=== PATIENT | male | born 1960 | race Caucasian/White ===

== ENCOUNTER 2017-05-19 15:37 | Inpatient (IN) | payer OTHER ==
[~2017-05-19] VITALS: Ht 177.8 cm; Wt 104.0 kg
[~2017-05-19 15:37] MED LIST: CALCIUM CHLORIDE 10% SOLN 1 GRAM/10 ML SYR IV ONE; PHENYLEPH/NS 1000 MCG/10 ML SYR IV ONE; PHENYLEPHRINE HCL 10 MG/ML VIAL IV ONE; PROPOFOL 200 MG/20 ML AMP IV ONE; ROCURONIUM INJ 50 MG/5 ML SYRINGE IV PUSH ONE; VECURONIUM BROMIDE 20 MG VIAL IV ONE
[2017-05-19] MEDS ORDERED: IOHEXOL 350 MG/ML 10 ML VIAL (for RAD DIAG) IVCONTRAST ONE (15:38)
[2017-05-19] MEDS ORDERED: DIPHTH/TETANUS/ACEL PERTUSSIS (BOOSTER) 0.5 ML VIAL/PFS IM ONE (15:42)
[2017-05-19] MEDS ORDERED: ONDANSETRON HCL 4 MG/2 ML VIAL ONE (15:42)
[2017-05-19] MEDS ORDERED: SUCCINYLCHOLINE CHLORIDE 200 MG/10 ML VIAL ONE ×2 (15:45→15:59)
[2017-05-19] MEDS ORDERED: ETOMIDATE 40 MG/20 ML VIAL ONE (15:45)
[2017-05-19] MEDS ORDERED: PROPOFOL 1000 MG/100 ML INJ 100 ML ONE (15:49)
[2017-05-19] MEDS ORDERED: MIDAZOLAM HCL 5 MG/ML VIAL (1 ML) ONE (15:49)
[2017-05-19] MEDS ORDERED: PHENYLEPHRINE HCL 10 MG/ML VIAL ONE (16:12)
[2017-05-19 16:30] LABS: AUTOMATED NEUTROPHIL # 8.2 TH/MM3 (1.8-7.7); BASOPHIL # 0.1 TH/MM3 (0-0.2); BASOPHIL % 0.5 % (0.0-2.0); EOSINOPHIL % 0.3 % (0.0-4.0); HEMATOCRIT 40.1 % (39.0-51.0); LYMPH % 28.1 % (9.0-44.0); LYMPHOCYTE # 3.4 TH/MM3 (1.0-4.8); MEAN CELL VOLUME 91.4 FL (80.0-100.0); MEAN CORPUSCULAR HEMOGLOBIN 31.9 PG (27.0-34.0); MEAN CORPUSCULAR HGB CONC 34.9 % (32.0-36.0); MEAN PLATELET VOLUME 7.6 FL (7.0-11.0); MONO % 2.9 % (0.0-8.0); MONOCYTE # 0.3 TH/MM3 (0-0.9); NEUT % 68.2 % (16.0-70.0); PLATELET COUNT 291 TH/MM3 (150-450); RED BLOOD COUNT 4.38 MIL/MM3 (4.50-5.90); RED CELL DISTRIBUTION WIDTH 12.9 % (11.6-17.2)
[2017-05-19 16:47] LABS: INTERNATIONAL NORMALIZED RATIO 1.2 RATIO; PROTHROMBIN TIME - PATIENT 11.9 SEC (9.8-11.6)
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
[2017-05-19] MEDS ORDERED: LACTULOSE SYRUP 20 GM/30 ML CUP PO PRN ×2 (17:00→18:00)
[2017-05-19] MEDS ORDERED: PROPOFOL 1000 MG/100 ML INJ 100 ML IV PRN ×2 (17:00→18:00)
[2017-05-19] MEDS ORDERED: fentaNYL DRIP 250 ML IV PRN ×2 (17:00→18:00)
[2017-05-19] MEDS ORDERED: CHLORHEXIDINE GLUCONATE 2 % 1 PACK (2 CLOTHS) TOP PRN ×2 (17:00→18:00)
[2017-05-19] MEDS ORDERED: SENNOSIDES 8.6 MG TAB PO PRN ×2 (17:00→18:00)
[2017-05-19] MEDS ORDERED: MAGNESIUM HYDROXIDE SUSP 30 ML CUP PO PRN (17:00)
[2017-05-19] MEDS ORDERED: BISACODYL 10 MG SUPP RECTAL PRN ×2 (17:00→18:00)
[2017-05-19] MEDS ORDERED: MISCELLANEOUS NURSING INFORMATION XX SCH ×2 (17:00→18:00)
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
[2017-05-19] MEDS ORDERED: MIDAZOLAM HCL 2 MG/2 ML VIAL ONE (17:04)
[2017-05-19] MEDS ORDERED: fentaNYL CITRATE 250 MCG/5 ML AMP ONE (17:04)
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
[2017-05-19 17:19] VITALS: O2SAT 97
[2017-05-19 17:21] VITALS: O2SAT 91
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
--- NOTE | 2017-05-19 17:49 | RADRPT ---
EXAM DATE/TIME: 05/19/2017 17:29 [facility] COMPARISON: CHEST SINGLE AP, May 19, 2017, 15:38. INDICATIONS : Evaluate for pneumothorax. MEDICAL HISTORY : None. SURGICAL HISTORY : None. ENCOUNTER: Subsequent ACUITY: 1 day PAIN SCORE: Non-responsive. LOCATION: chest FINDINGS: There is no pneumothorax. Multiple left rib fractures are noted the small amount of pleural fluid. Right lung clear. The support apparatus in good position. CONCLUSION: Negative for pneumothorax. Multiple left rib fractures. David Ho MD FACR on May 19, 2017 at 17:47 Board Certified Radiologist. This report was verified electronically.
[2017-05-19] MEDS: HEPARIN SODIUM - IV 10,000 UNITS/10 ML VIAL ONE ×2 (17:52→18:46)
[2017-05-19] MEDS ORDERED: ceFAZolin 2 GM PREMIX 50 ML ONE (17:59)
[2017-05-19] MEDS ORDERED: MAGNESIUM OXIDE 400 MG TAB PO PRN (18:00)
[2017-05-19] MEDS ORDERED: ONDANSETRON HCL 4 MG/2 ML VIAL IV PUSH PRN (18:00)
[2017-05-19] MEDS ORDERED: POTASSIUM PHOSPHATE MONOBASIC 500 MG TAB PO PRN (18:00)
[2017-05-19] MEDS ORDERED: RESP: ALBUTEROL 2.5 MG/3 ML NEB (PRN) INH (18:00)
[2017-05-19] MEDS ORDERED: SODIUM PHOSPHATE INJ 30 MMOL in SODIUM CHLOR 0.9% 250 ML INJ 240 ML IV PRN (18:00)
[2017-05-19] MEDS ORDERED: POTASSIUM PHOSPHATE INJ 30 MMOL in SODIUM CHLOR 0.9% 250 ML INJ 250 ML IV PRN (18:00)
[2017-05-19] MEDS ORDERED: DEXTROSE 50% IN WATER 50 ML VIAL(D50) IV PUSH PRN (18:00)
[2017-05-19] MEDS ORDERED: POTASSIUM CHLORIDE 25 MEQ EFFERVESCENT TAB PO PRN (18:00)
[2017-05-19] MEDS ORDERED: GLUCAGON 1 MG/ML VIAL OTHER PRN (18:00)
[2017-05-19] MEDS ORDERED: SODIUM CHLORIDE 0.9% FLUSH 10 ML FLUSH IV FLUSH PRN (18:00)
[2017-05-19] MEDS ORDERED: MAGNESIUM SULFATE INJ 4 GM in SODIUM CHLORIDE 0.9% INJ 92 ML IV PRN (18:00)
[2017-05-19] MEDS ORDERED: POTASSIUM CHLOR 40 MEQ PREMIX 100 ML IV PRN (18:00)
[2017-05-19] MEDS ORDERED: MAGNESIUM SULFATE INJ 2 GM in SODIUM CHLORIDE 0.9% INJ 96 ML IV PRN (18:00)
[2017-05-19] MEDS ORDERED: POTASSIUM CHLOR 20 MEQ PREMIX 100 ML IV PRN ×2 (18:00)
[2017-05-19] MEDS ORDERED: POTASSIUM PHOSPHATE MONOBASIC 500 MG TAB PO/TUBE PRN (18:00)
[2017-05-19] MEDS: LACTATED RINGER'S 1000 ML INJ 1,000 ML IV SCH (18:00)
[2017-05-19] MEDS ORDERED: TERBUTALINE INJ 1 MG/ML AMP SQ PRN (18:30)
[2017-05-19] MEDS ORDERED: NOREPINEPHRINE INJ 4 MG in SODIUM CHLOR 0.9% 250 ML INJ 246 ML IV PRN ×2 (18:30→21:15)
--- NOTE | 2017-05-19 18:52 | PD.PROCEDR ---
Central Line Procedure REASON FOR PROCEDURE Central venous access PROCEDURE PERFORMED Central line placement: Attempted right subclavian Cordis catheter CONSENT Informed consent for procedure was not obtained due to hemodynamic instability on multiple vasopressors. The risks and benefits of the procedure were discussed to include but limited to bleeding, clot formation, infection, and even . ANESTHESIA Local injection of 1% Lidocaine DESCRIPTION OF THE PROCEDURE The patient was placed in supine, mild Trendelenburg position. The area was exposed and cleansed with ChloraPrep, times two. Large sterile drape was used to cover the patient, with the site exposed, under sterile conditions including cap, face mask, sterile gown, and sterile gloves. On single attempt, the introducer needle was inserted with negative pressure in syringe below the right clavicle in towards the sternal notch. On multiple pass-throughs, unable to access right subclavian vein. Procedure was stopped. Follow-up chest x-ray revealed no pneumothorax.. COMPLICATIONS: No apparent complications ESTIMATED BLOOD LOSS: Less than 1 cc. Bo Rodriguez MD May 19, 2017 18:52
[2017-05-19] MEDS ORDERED: GELATIN 12 MM/7 MM FOAM I-ARTERIAL ONE (19:00)
[2017-05-19] MEDS ORDERED: IODIXANOL 320 MG/ML 50 ML VIAL (for RAD SPEC) I-ARTERIAL ONE (19:00)
--- NOTE | 2017-05-19 19:53 | PD.RAD ---
Post Procedure Progress Note Pre Procedure Diagnosis: (1) Hemorrhage of pelvic artery (2) Traumatic hemorrhagic shock Post Procedure Diagnosis: (1) Hemorrhage of pelvic artery (2) Traumatic hemorrhagic shock Procedure Date: May 19, 2017 Supervising Radiologist: Hussain Whitaker Proceduralist/Assist: Anjelica Tolentino, RT(R), Cris Cyr RT(R)() Anesthesia: General Plan of Activity Patient to Unit: Critical Care Patient Condition: Critical See PACS Report for procedural detail/treatment Vascular-Arterial Procedure Procedure 1 Procedure Site: Abdominal (Anterior division of pelvic arteries bilaterally) Procedure(s): Embolization (Anterior division of hypogastrics bilaterally) Access Access Site(s): Right Femoral Artery Closure Site(s): Right vascular closure device (PerClose) Findings: No active hemorrhage identified but patient undergoing massive transfusion protocol. Empiric embolization of anterior divisions of both hypogastrics, GelFoam bilaterally and coils on left. Hussain Whitaker MD May 19, 2017 19:52
[2017-05-19 20:00] VITALS: BP 169/97; PULSE 146; RESP 18; TEMP 95.4; O2SAT 89
[2017-05-19] MEDS ORDERED: CALCIUM CHLORIDE INJ 1 GM in SODIUM CHLORIDE 0.9% INJ 100 ML IV ONE (20:00)
[2017-05-19] MEDS: CHLORHEXIDINE 0.12% (ORAL KIT) 15 ML CUP MT SCH (20:00)
[2017-05-19] MEDS: ARTIFICIAL TEARS OPTH SOLN 15 ML BTL EACH EYE SCH (20:00)
[2017-05-19] MEDS: RESP: ALBUTEROL 2.5 MG/IPRATROPIUM 0.5 MG NEB (SCH) INH (20:00)
[2017-05-19] MEDS: PANTOPRAZOLE SODIUM 40 MG VIAL IV PUSH SCH (20:00)
[2017-05-19] MEDS: PROPOFOL 1000 MG/100 ML INJ 100 ML IV PRN (21:00)
[2017-05-19] MEDS ORDERED: FAMOTIDINE 20 MG TAB PO SCH (21:00)
[2017-05-19] MEDS ORDERED: FAMOTIDINE 20 MG/2 ML VIAL IV PUSH SCH (21:00)
[2017-05-19] MEDS: SODIUM CHLORIDE 0.9% FLUSH 10 ML FLUSH IV FLUSH SCH (21:00)
[2017-05-19] MEDS: DOCUSATE SODIUM 50 MG/SENNA 8.6 MG TAB PO SCH (21:00)
[2017-05-19] MEDS ORDERED: DOCUSATE SODIUM 50 MG/SENNA 8.6 MG TAB PO SCH (21:00)
[2017-05-19 21:06] LABS: HEMATOCRIT 36.8 % (39.0-51.0); HEMOGLOBIN 12.8 GM/DL (13.0-17.0); MEAN CELL VOLUME 85.6 FL (80.0-100.0); MEAN CORPUSCULAR HEMOGLOBIN 29.8 PG (27.0-34.0); MEAN CORPUSCULAR HGB CONC 34.8 % (32.0-36.0); PLATELET COUNT 95 TH/MM3 (150-450); RED CELL DISTRIBUTION WIDTH 15.9 % (11.6-17.2)
--- NOTE | 2017-05-19 21:09 | RADRPT ---
EXAM DATE/TIME: 05/19/2017 20:37 [facility] COMPARISON: CHEST SINGLE AP, May 19, 2017, 17:29. INDICATIONS : Trauma. Cyanosis. MEDICAL HISTORY : None. SURGICAL HISTORY : None. ENCOUNTER: Initial ACUITY: 1 day PAIN SCORE: Non-responsive. LOCATION: Bilateral chest FINDINGS: A single view of the chest demonstrates endotracheal tube in good position. NG enters stomach. Increa sing perihilar and basilar airspace disease since earlier exam. Multiple left rib fractures with extr apleural hematoma. CONCLUSION: 1. Increasing bilateral airspace disease since earlier exam. Differential diagnosis includes contusio n and edema. Multiple left rib fractures with extrapleural hematoma. Endotracheal tube and nasogastri c tube in good position. Bulmaro Fong MD on May 19, 2017 at 21:05 Board Certified Radiologist. This report was verified electronically.
[2017-05-19 21:14] VITALS: O2SAT 92
[2017-05-19 21:15] LABS: INTERNATIONAL NORMALIZED RATIO 1.4 RATIO; PROTHROMBIN TIME - PATIENT 14.3 SEC (9.8-11.6)
[2017-05-19 21:29] LABS: CALCIUM 8.8 MG/DL (8.5-10.1); CREATININE 1.13 MG/DL (0.60-1.30); DIRECT BILIRUBIN ADULT 0.5 MG/DL (0.0-0.2); MAGNESIUM 1.8 MG/DL (1.5-2.5)
[2017-05-19 21:36] LABS: INDIRECT BILIRUBIN 1.3 MG/DL (0.0-0.8); TOTAL BILIRUBIN ADULT 1.8 MG/DL (0.2-1.0)
[2017-05-19] MEDS: fentaNYL DRIP 250 ML IV PRN (21:39)
--- NOTE | 2017-05-19 22:08 | PD.OP ---
Operative Report hemorrhagic shock,pelvic fracture Postoperative Diagnosis: hemorrhagic shock,pelvic fracture Procedure: Preperitoneal packing Anesthesia: Surgeon: Marisa Valadez Cable Braider(s): OR -FA Operation and Findings: 57 y.o patient active bleeding pelvis,HD unstable in ICU,will proceed with pelvic packing to stabilize-and proceed to IR. Technique: Patient brought to the OR in intubated condition-with ongoing MTP.After administration of GA -lower abdominal midline incision was performed.Midline fascia opened preperitoneal space developed bluntly-a total of 5 packs were inserted-right,left and midline.Skin closure with yajaira.Tolerated procedure well-resuscitated by anesthesia. Marisa Valadez MD May 19, 2017 22:08
[2017-05-19] MEDS: POTASSIUM CHLOR 40 MEQ PREMIX 100 ML IV PRN (22:13)
[2017-05-19 23:00] VITALS: PULSE 120
[2017-05-20] VITALS (14 sets, daily range): BP systolic 96–163; BP diastolic 64–103; PULSE 95–117; RESP 16–22; TEMP 97.2–101.8; O2SAT 97–100
[2017-05-20] MEDS: POTASSIUM CHLOR 40 MEQ PREMIX 100 ML IV PRN (00:35)
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
[2017-05-20] MEDS ORDERED: ACETAMINOPHEN 1000 MG/100 ML 65 ML IV ONE (03:45)
[2017-05-20] MEDS: CHLORHEXIDINE GLUCONATE 2 % 1 PACK (2 CLOTHS) TOP SCH (03:56)
[2017-05-20] MEDS: LACTATED RINGER'S 1000 ML INJ 1,000 ML IV SCH ×2 (03:56→07:01)
[2017-05-20] MEDS ORDERED: CHLORHEXIDINE GLUCONATE 2 % 1 PACK (2 CLOTHS) TOP SCH (04:00)
[2017-05-20 04:15] LABS: AUTOMATED NEUTROPHIL # 6.9 TH/MM3 (1.8-7.7); BASOPHIL % 0.1 % (0.0-2.0); EOSINOPHIL % 0.2 % (0.0-4.0); HEMATOCRIT 38.9 % (39.0-51.0); HEMOGLOBIN 13.7 GM/DL (13.0-17.0); LYMPH % 5.5 % (9.0-44.0); LYMPHOCYTE # 0.4 TH/MM3 (1.0-4.8); MEAN CELL VOLUME 84.3 FL (80.0-100.0); MEAN CORPUSCULAR HEMOGLOBIN 29.8 PG (27.0-34.0); MEAN CORPUSCULAR HGB CONC 35.3 % (32.0-36.0); MONO % 3.5 % (0.0-8.0); MONOCYTE # 0.3 TH/MM3 (0-0.9); NEUT % 90.7 % (16.0-70.0); PLATELET COUNT 120 TH/MM3 (150-450); RED BLOOD COUNT 4.62 MIL/MM3 (4.50-5.90); WHITE BLOOD COUNT 7.6 TH/MM3 (4.0-11.0)
[2017-05-20 04:28] LABS: INTERNATIONAL NORMALIZED RATIO 1.1 RATIO; PROTHROMBIN TIME - PATIENT 10.8 SEC (9.8-11.6)
[2017-05-20 04:40] LABS: CALCIUM 8.5 MG/DL (8.5-10.1); CREATININE 1.6 MG/DL (0.60-1.30); MAGNESIUM 1.8 MG/DL (1.5-2.5)
[2017-05-20] MEDS: RESP: ALBUTEROL 2.5 MG/IPRATROPIUM 0.5 MG NEB (SCH) INH ×7 (05:15→23:27)
[2017-05-20 05:24] LABS: PHOSPHORUS 3.1 MG/DL (2.5-4.9)
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
[2017-05-20] MEDS: INSULIN ASPART SUPPLEMENTAL SCALE SQ SCH ×4 (06:00→17:50)
[2017-05-20] MEDS ORDERED: LACTATED RINGER'S 1000 ML INJ 1,000 ML IV ONE ×2 (06:15→06:30)
[2017-05-20] MEDS: CHLORHEXIDINE 0.12% (ORAL KIT) 15 ML CUP MT SCH ×2 (08:00→20:00)
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
[2017-05-20] MEDS: SODIUM CHLORIDE 0.9% FLUSH 10 ML FLUSH IV FLUSH SCH ×2 (09:00→20:48)
[2017-05-20] MEDS: LACTULOSE SYRUP 20 GM/30 ML CUP PO SCH (09:00)
[2017-05-20] MEDS: DOCUSATE SODIUM 50 MG/SENNA 8.6 MG TAB PO SCH ×2 (09:00→20:48)
[2017-05-20] MEDS: ARTIFICIAL TEARS OPTH SOLN 15 ML BTL EACH EYE SCH ×3 (09:00→17:10)
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
[2017-05-20] MEDS: PROPOFOL 1000 MG/100 ML INJ 100 ML IV PRN ×2 (17:00→23:11)
[2017-05-20] MEDS: fentaNYL DRIP 250 ML IV PRN (17:00)
[2017-05-20 17:51] LABS: HEMOGLOBIN 13.2 GM/DL (13.0-17.0); MEAN CELL VOLUME 85.4 FL (80.0-100.0); MEAN CORPUSCULAR HEMOGLOBIN 29.6 PG (27.0-34.0); MEAN CORPUSCULAR HGB CONC 34.7 % (32.0-36.0); MEAN PLATELET VOLUME 7.6 FL (7.0-11.0); PLATELET COUNT 99 TH/MM3 (150-450); RED BLOOD COUNT 4.45 MIL/MM3 (4.50-5.90); RED CELL DISTRIBUTION WIDTH 16.3 % (11.6-17.2); WHITE BLOOD COUNT 6.4 TH/MM3 (4.0-11.0)
[2017-05-20 18:33] LABS: BICARBONATE 29.2 MEQ/L (21.0-32.0); CALCIUM 7.8 MG/DL (8.5-10.1); CREATININE 1.57 MG/DL (0.60-1.30)
[2017-05-20] MEDS: PANTOPRAZOLE SODIUM 40 MG VIAL IV PUSH SCH (20:00)
[2017-05-21] VITALS (14 sets, daily range): BP systolic 105–124; BP diastolic 62–66; PULSE 99–117; RESP 16; TEMP 98.5–101.1; O2SAT 92–100
[2017-05-21] MEDS: RESP: ALBUTEROL 2.5 MG/IPRATROPIUM 0.5 MG NEB (SCH) INH ×5 (03:12→19:42)
[2017-05-21] MEDS: CHLORHEXIDINE GLUCONATE 2 % 1 PACK (2 CLOTHS) TOP SCH (04:00)
[2017-05-21 04:04] LABS: BASOPHIL % 0.3 % (0.0-2.0); EOSINOPHIL # 0.1 TH/MM3 (0-0.4); EOSINOPHIL % 1.8 % (0.0-4.0); HEMATOCRIT 36.6 % (39.0-51.0); HEMOGLOBIN 12.9 GM/DL (13.0-17.0); LYMPH % 9.6 % (9.0-44.0); LYMPHOCYTE # 0.7 TH/MM3 (1.0-4.8); MEAN CORPUSCULAR HEMOGLOBIN 29.9 PG (27.0-34.0); MEAN CORPUSCULAR HGB CONC 35.1 % (32.0-36.0); MEAN PLATELET VOLUME 7.6 FL (7.0-11.0); MONO % 5.2 % (0.0-8.0); MONOCYTE # 0.4 TH/MM3 (0-0.9); NEUT % 83.1 % (16.0-70.0); PLATELET COUNT 87 TH/MM3 (150-450); RED CELL DISTRIBUTION WIDTH 16.3 % (11.6-17.2); WHITE BLOOD COUNT 7.2 TH/MM3 (4.0-11.0)
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
[2017-05-21 04:30] LABS: ALBUMIN 2.7 GM/DL (3.4-5.0); BICARBONATE 29.6 MEQ/L (21.0-32.0); CALCIUM 7.4 MG/DL (8.5-10.1); CALCIUM-PROTEIN CORRECTED 8.3 MG/DL (8.5-10.1); CREATININE 1.43 MG/DL (0.60-1.30); MAGNESIUM 2.2 MG/DL (1.5-2.5); PHOSPHORUS 4.6 MG/DL (2.5-4.9); TOTAL BILIRUBIN ADULT 3.5 MG/DL (0.2-1.0); TOTAL PROTEIN 5.5 GM/DL (6.4-8.2)
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
[2017-05-21 04:52] LABS: INTERNATIONAL NORMALIZED RATIO 1.2 RATIO; PROTHROMBIN TIME - PATIENT 12.6 SEC (9.8-11.6)
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
[2017-05-21 05:03] LABS: BANDS 9 % (0-6); DOHLE BODIES PRESENT (NONE SEEN); LYMPHOCYTES 10 % (9-44); MONOCYTES 3 % (0-8); NEUTROPHIL # MANUAL DIFF 6.1 TH/MM3 (1.8-7.7); POLYS (SEG NEUTROPHILS) 76 % (16-70)
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
[2017-05-21 05:04] LABS: ACANTHOCYTES OCC (NORMAL)
[2017-05-21] MEDS: INSULIN ASPART SUPPLEMENTAL SCALE SQ SCH ×4 (05:43→18:00)
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
[2017-05-21] MEDS: PROPOFOL 1000 MG/100 ML INJ 100 ML IV PRN ×2 (06:16→16:15)
[2017-05-21] MEDS: LACTULOSE SYRUP 20 GM/30 ML CUP PO SCH (09:27)
[2017-05-21] MEDS: DOCUSATE SODIUM 50 MG/SENNA 8.6 MG TAB PO SCH ×2 (09:27→19:52)
[2017-05-21] MEDS: SODIUM CHLORIDE 0.9% FLUSH 10 ML FLUSH IV FLUSH SCH ×2 (09:28→19:52)
[2017-05-21] MEDS: fentaNYL DRIP 250 ML IV PRN ×2 (09:28→19:55)
[2017-05-21] MEDS: CHLORHEXIDINE 0.12% (ORAL KIT) 15 ML CUP MT SCH ×2 (09:28→19:54)
[2017-05-21] MEDS: ARTIFICIAL TEARS OPTH SOLN 15 ML BTL EACH EYE SCH ×3 (09:28→18:03)
[2017-05-21] MEDS: LACTATED RINGER'S 1000 ML INJ 1,000 ML IV SCH ×2 (09:28)
[2017-05-21] MEDS ORDERED: GENTAMICIN SULFATE 80 MG/2 ML VIAL ONE (10:19)
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
[2017-05-21] MEDS ORDERED: POTASSIUM CHLORIDE INJ 30 MEQ in SODIUM CHLORIDE 0.9% INJ 100 ML IV-CENTRAL ONE (10:30)
[2017-05-21] MEDS ORDERED: CALCIUM GLUCONATE INJ 1 GM in SODIUM CHLORIDE 0.9% INJ 100 ML IV ONE (10:30)
[2017-05-21] MEDS ORDERED: VANCOMYCIN HCL 1000 MG VIAL ONE (10:55)
[2017-05-21] MEDS ORDERED: ceFAZolin 2 GM PREMIX 50 ML ONE (10:55)
[2017-05-21] MEDS ORDERED: VANCOMYCIN HCL 1000 MG VIAL IV ONE (11:19)
[2017-05-21] MEDS ORDERED: TRANEXAMIC ACID INJ 1,000 MG in SODIUM CHLORIDE 0.9% INJ 100 ML IV ONE ×2 (11:34→13:10)
[2017-05-21] MEDS ORDERED: ceFAZolin 2 GM PREMIX 50 ML IV ONE (11:35)
[2017-05-21] MEDS ORDERED: PROPOFOL 500 MG/50 ML INJ 50 ML ONE ×2 (11:38→11:40)
[2017-05-21] MEDS ORDERED: PHENYLEPH/NS 1000 MCG/10 ML SYR IV ONE (12:00)
[2017-05-21] MEDS ORDERED: SODIUM CHLOR 0.9% 250 ML INJ 750 ML IV ONE (12:00)
[2017-05-21] MEDS ORDERED: SODIUM CHLORIDE 0.9% 20 ML VIAL IV ONE (12:00)
[2017-05-21] MEDS ORDERED: PHENYLEPHRINE HCL 10 MG/ML VIAL IV ONE (12:00)
[2017-05-21] MEDS ORDERED: STERILE WATER FOR INJECTION 20 ML VIAL IV ONE (12:00)
[2017-05-21] MEDS ORDERED: VECURONIUM BROMIDE 20 MG VIAL IV ONE (12:00)
[2017-05-21] MEDS ORDERED: LACTATED RINGER'S 1000 ML INJ 2,000 ML IV ONE (12:00)
[2017-05-21] MEDS ORDERED: SODIUM BICARBONATE 8.4% INJ 50 MEQ/50 ML SYR IV ONE (12:00)
[2017-05-21] MEDS ORDERED: CALCIUM CHLORIDE 10% SOLN 1 GRAM/10 ML SYR IV ONE (12:00)
[2017-05-21] MEDS ORDERED: PHENYLEPHRINE HCL 10 MG/ML VIAL ONE (12:10)
[2017-05-21] MEDS ORDERED: VECURONIUM BROMIDE 20 MG VIAL ONE (12:10)
[2017-05-21] MEDS ORDERED: TRANEXAMIC ACID INJ 1,000 MG/10 ML AMP ONE (12:42)
[2017-05-21] MEDS ORDERED: TRANEXAMIC ACID 650 MG TAB ONE (12:44)
--- NOTE | 2017-05-21 13:10 | RADRPT ---
EXAM DATE/TIME: 05/21/2017 12:07 [facility] COMPARISON: No previous studies available for comparison. INDICATIONS : Post hardware placement left tibia MEDICAL HISTORY : Non-responsive. SURGICAL HISTORY : Non-responsive. ENCOUNTER: Subsequent ACUITY: 1 day PAIN SCORE: Non-responsive. LOCATION: Left Tibia FINDINGS: Two view examination of the left tibia demonstrate status post ORIF of a tibial plateau fracture with now excellent alignment. Some step-off anteriorly of the lateral tibial plateau Bony mineralization is normal. The soft tissue structures are intact. CONCLUSION: Status post tibial fracture fixation without complication. Robert Doss MD on May 21, 2017 at 13:07 Board Certified Radiologist. This report was verified electronically.
[2017-05-21] MEDS ORDERED: HYDR-3288 PO (13:12)
[2017-05-21] MEDS ORDERED: ENOX40P SQ (13:13)
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
--- NOTE | 2017-05-21 14:12 | RADRPT ---
EXAM DATE/TIME: 05/21/2017 12:07 [facility] COMPARISON: No previous studies available for comparison. INDICATIONS : Retrograde femoral zeinab placement. MEDICAL HISTORY : None. SURGICAL HISTORY : None. ENCOUNTER: Initial ACUITY: 1 day PAIN SCORE: Non-responsive. LOCATION: Right femur. FINDINGS: Two view examination of the right femur demonstrates status post ORIF of comminuted femoral fracture. Bony mineralization is normal. The soft tissue structures are intact. CONCLUSION: Status post fracture fixation as above. Robert Doss MD on May 21, 2017 at 14:10 Board Certified Radiologist. This report was verified electronically.
--- NOTE | 2017-05-21 14:37 | RADRPT ---
EXAM DATE/TIME: 05/21/2017 14:05 [facility] COMPARISON: No previous studies available for comparison. INDICATIONS : OR Lap Count. MEDICAL HISTORY : None. SURGICAL HISTORY : Iliac embolization. ENCOUNTER: Initial ACUITY: 1 day PAIN SCORE: Non-responsive. LOCATION: Right pelvis FINDINGS: A single frontal view of the pelvis demonstrates a left superior and inferior pubic ramus fracture. T he iliac coil overlying the left superior pubic ramus The bony pelvic ring is intact. Bony mineraliz ation is normal. The soft tissues are intact. A De La Vega catheter in place CONCLUSION: No foreign body identified other than embolization coil and De La Vega catheter. Robert Doss MD on May 21, 2017 at 14:34 Board Certified Radiologist. This report was verified electronically.
[2017-05-21] MEDS ORDERED: Post-op Orders (for Pharmacy) XX ONE (15:00)
[2017-05-21] MEDS ORDERED: MIDAZOLAM HCL 2 MG/2 ML VIAL ONE (15:04)
[2017-05-21] MEDS ORDERED: ACETAMINOPHEN 650 MG/20.3 ML UDC NG PRN (19:00)
[2017-05-21] MEDS ORDERED: ACETAMINOPHEN 325 MG TAB PO PRN (19:00)
[2017-05-21] MEDS: PANTOPRAZOLE SODIUM 40 MG VIAL IV PUSH SCH (19:52)
[2017-05-22] VITALS (20 sets, daily range): BP systolic 101–165; BP diastolic 61–92; PULSE 100–117; RESP 14–22; TEMP 99.7–100.4; O2SAT 94–100
[2017-05-22] MEDS: RESP: ALBUTEROL 2.5 MG/IPRATROPIUM 0.5 MG NEB (SCH) INH ×6 (00:06→19:43)
[2017-05-22] MEDS: PROPOFOL 1000 MG/100 ML INJ 100 ML IV PRN ×4 (00:17→23:46)
[2017-05-22 03:47] LABS: AUTOMATED NEUTROPHIL # 5.6 TH/MM3 (1.8-7.7); BASOPHIL % 0.5 % (0.0-2.0); EOSINOPHIL # 0.2 TH/MM3 (0-0.4); EOSINOPHIL % 2.5 % (0.0-4.0); HEMATOCRIT 32.3 % (39.0-51.0); HEMOGLOBIN 10.9 GM/DL (13.0-17.0); LYMPH % 11.4 % (9.0-44.0); LYMPHOCYTE # 0.8 TH/MM3 (1.0-4.8); MEAN CELL VOLUME 86.7 FL (80.0-100.0); MEAN CORPUSCULAR HEMOGLOBIN 29.3 PG (27.0-34.0); MEAN CORPUSCULAR HGB CONC 33.8 % (32.0-36.0); MEAN PLATELET VOLUME 7.9 FL (7.0-11.0); MONO % 3.4 % (0.0-8.0); MONOCYTE # 0.2 TH/MM3 (0-0.9); NEUT % 82.2 % (16.0-70.0); PLATELET COUNT 82 TH/MM3 (150-450); RED BLOOD COUNT 3.72 MIL/MM3 (4.50-5.90); WHITE BLOOD COUNT 6.8 TH/MM3 (4.0-11.0)
[2017-05-22] MEDS: CHLORHEXIDINE GLUCONATE 2 % 1 PACK (2 CLOTHS) TOP SCH (04:00)
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
[2017-05-22 04:11] LABS: ALBUMIN 2.3 GM/DL (3.4-5.0); AST (GOT) 45 U/L (15-37); BICARBONATE 27.5 MEQ/L (21.0-32.0); BLOOD UREA NITROGEN 22 MG/DL (7-18); CALCIUM 7.6 MG/DL (8.5-10.1); CHLORIDE 116 MEQ/L (98-107); CREATININE 1.39 MG/DL (0.60-1.30); DIRECT BILIRUBIN ADULT 0.6 MG/DL (0.0-0.2); GLOMERULAR FILTRATION RATE 44 ML/MIN (>89); GLUCOSE,RANDOM 124 MG/DL (74-106); MAGNESIUM 2.2 MG/DL (1.5-2.5); SODIUM (NA) 151 MEQ/L (136-145)
[2017-05-22 04:16] LABS: ALKALINE PHOSPHATASE 61 U/L (45-117); ALT (GPT) 26 U/L (12-78); PHOSPHORUS 2.6 MG/DL (2.5-4.9); TOTAL BILIRUBIN ADULT 2.6 MG/DL (0.2-1.0); TOTAL PROTEIN 5.2 GM/DL (6.4-8.2)
[2017-05-22 04:27] LABS: BANDS 11 % (0-6); LYMPHOCYTES 11 % (9-44); METAMYELOCYTES 1 % (0-1); MONOCYTES 5 % (0-8); NEUTROPHIL # MANUAL DIFF 5.4 TH/MM3 (1.8-7.7); POLYS (SEG NEUTROPHILS) 67 % (16-70)
[2017-05-22 04:29] LABS: DOHLE BODIES PRESENT (NONE SEEN); TOXIC VACUOLATION PRESENT (NONE SEEN)
--- NOTE | 2017-05-22 05:51 | RADRPT ---
EXAM DATE/TIME: 05/22/2017 04:02 [facility] COMPARISON: CHEST SINGLE AP, May 21, 2017, 2:39. INDICATIONS : Shortness of breath, respiratory disease. MEDICAL HISTORY : None. SURGICAL HISTORY : None. ENCOUNTER: Subsequent ACUITY: 2 days PAIN SCORE: 0/10 LOCATION: Bilateral chest FINDINGS: A single AP portable semierect view of the chest was obtained and again demonstrates the endotracheal tube in place with the tip approximately 2 cm above the erica. A nasogastric tube is seen coursing through the esophagus into the stomach. Hazy airspace disease remains in the perihilar regions of bot h lung bases with blunting of the costophrenic angles. The heart size remains mildly enlarged. There are multiple overlying electrocardiogram leads. CONCLUSION: No significant change in the bibasilar airspace disease and pleural effusions. José Miguel Rodriguez MD on May 22, 2017 at 5:49 Board Certified Radiologist. This report was verified electronically.
[2017-05-22] MEDS: INSULIN ASPART SUPPLEMENTAL SCALE SQ SCH ×5 (06:00→23:54)
--- NOTE | 2017-05-22 06:58 | PD.ORT.PN ---
Subjective Subjective Remarks Pedro is intubated and sedated. Status post ORIF left tibial plateau and IM nail right femoral shaft by Dr. Donovan on 05/21/17. I have been consult for definitive management of left proximal humerus fracture. Patient also has left foot first, second, and third metatarsal fractures. Objective Vitals Vital Signs Date Time Temp Pulse Resp B/P (MAP) Pulse Ox O2 Delivery O2 Flow Rate FiO2 05/22/17 06:00 105 05/22/17 04:00 99.7 105 16 116/65 (82) 97 05/22/17 04:00 105 05/22/17 04:00 40 05/22/17 03:13 97 40 05/22/17 02:00 108 05/22/17 00:06 96 40 05/22/17 00:00 100.2 108 16 101/61 (74) 96 05/22/17 00:00 40 05/22/17 00:00 108 05/21/17 22:00 112 05/21/17 20:00 101.1 112 16 111/62 (78) 96 05/21/17 20:00 40 05/21/17 20:00 112 05/21/17 19:36 92 40 05/21/17 19:00 Mechanical Ventilator 40 05/21/17 16:14 96 40 05/21/17 16:00 99.5 117 16 124/66 (85) 94 05/21/17 16:00 40 05/21/17 08:23 96 40 05/21/17 08:00 99.5 106 16 105/64 (78) 100 05/21/17 08:00 40 05/21/17 07:00 Mechanical Ventilator 50 I/O 05/21/17 05/21/17 05/21/17 05/22/17 05/22/17 05/22/17 07:00 15:00 23:00 07:00 15:00 23:00 Intake Total 999 ml 2500 ml 995 ml 100 ml Output Total 640 ml 1110 ml 1300 ml 500 ml Balance 359 ml 1390 ml -305 ml -400 ml IV Total 999 ml 995 ml 100 ml Other 2500 ml Output Urine Total 640 ml 700 ml 950 ml 500 ml Gastric Drainage Total 350 ml Estimated Blood Loss 410 ml # Bowel Movements 0 Result Diagram: 05/22/17 0330 05/22/17 0330 Imaging Last 24 hours Impressions Chest X-Ray 05/22/17 0600 Signed Impressions: Service Date/Time: Monday, May 22, 2017 04:02 - CONCLUSION: No significant change in the bibasilar airspace disease and pleural effusions. José Miguel Rodriguez MD Objective Remarks Patient intubated and sedated. Central line placed and left subclavian region. Left shoulder--painful with range of motion, skin intact, mild swelling Right upper extremity--no obvious pain or deformity with shoulder, elbow, or wrist motion Left foot--mild swelling and bruising, mild discomfort, tender to palpation Along metatarsals. Assessment & Plan Assessment and Plan Right Femoral shaft fracture--status post intramedullary nail fixation by Dr. Donovan Left Tibial plateau fracture--status post ORIF by Dr. Donovan Left foot first, second, and third metatarsal fractures--plan nonsurgical treatment Left comminuted proximal humerus fracture--will likely need ORIF versus possible hemiarthroplasty, we'll continue to follow patient's progress. Central line would need to be removed away from the left subclavian region prior to potential surgery Mal Ley MD May 22, 2017 06:58
[2017-05-22] MEDS: SODIUM CHLORIDE 0.9% FLUSH 10 ML FLUSH IV FLUSH SCH ×2 (08:32→20:22)
[2017-05-22] MEDS: LACTULOSE SYRUP 20 GM/30 ML CUP PO SCH (08:32)
[2017-05-22] MEDS: DOCUSATE SODIUM 50 MG/SENNA 8.6 MG TAB PO SCH ×2 (08:32→20:22)
[2017-05-22] MEDS: CHLORHEXIDINE 0.12% (ORAL KIT) 15 ML CUP MT SCH ×2 (08:33→20:00)
[2017-05-22] MEDS: ARTIFICIAL TEARS OPTH SOLN 15 ML BTL EACH EYE SCH ×3 (08:36→18:00)
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
[2017-05-22] MEDS: LACTATED RINGER'S 1000 ML INJ 1,000 ML IV SCH (10:54)
[2017-05-22] MEDS: FREE WATER G-TUBE SCH ×3 (11:13→23:44)
[2017-05-22] MEDS: fentaNYL DRIP 250 ML IV PRN (12:13)
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
[2017-05-22] MEDS ORDERED: ENOXAPARIN SODIUM 40 MG/0.4 ML SYRINGE SQ SCH (14:00)
--- NOTE | 2017-05-22 15:04 | PD.ORT.PN ---
Subjective Post Op Day #: 1 Subjective Remarks intubated Objective Vitals Vital Signs Date Time Temp Pulse Resp B/P (MAP) Pulse Ox O2 Delivery O2 Flow Rate FiO2 05/22/17 14:00 112 05/22/17 12:19 98 35 05/22/17 12:15 35 05/22/17 12:00 100.0 107 22 165/92 (116) 99 05/22/17 12:00 40 05/22/17 12:00 102 05/22/17 11:39 98 40 05/22/17 10:00 102 05/22/17 08:15 99 40 05/22/17 08:00 40 05/22/17 08:00 99.9 100 16 114/76 (89) 100 05/22/17 08:00 101 05/22/17 07:00 99 Mechanical Ventilator 40 05/22/17 06:00 105 05/22/17 04:00 99.7 105 16 116/65 (82) 97 05/22/17 04:00 105 05/22/17 04:00 40 05/22/17 03:13 97 40 05/22/17 02:00 108 05/22/17 00:06 96 40 05/22/17 00:00 100.2 108 16 101/61 (74) 96 05/22/17 00:00 40 05/22/17 00:00 108 05/21/17 22:00 112 05/21/17 20:00 101.1 112 16 111/62 (78) 96 05/21/17 20:00 40 05/21/17 20:00 112 05/21/17 19:36 92 40 05/21/17 19:00 Mechanical Ventilator 40 05/21/17 16:14 96 40 05/21/17 16:00 99.5 117 16 124/66 (85) 94 18 16:00 40 I/O 05/21/1705/21/18 18 05/22/17 05/22/17 05/22/17 06:59 14:59 22:59 06:59 14:59 22:59 Intake Total 999 ml 2500 ml 995 ml 100 ml Output Total 640 ml 1110 ml 1300 ml 500 ml Balance 359 ml 1390 ml -305 ml -400 ml IV Total 999 ml 995 ml 100 ml Other 2500 ml Output Urine Total 640 ml 700 ml 950 ml 500 ml Gastric Drainage Total 350 ml Estimated Blood Loss 410 ml # Bowel Movements 0 Result Diagram: 05/22/17 0330 05/22/17 0330 Imaging Last 24 hours Impressions Chest X-Ray 05/22/17 0600 Signed Impressions: Service Date/Time: Monday, May 22, 2017 04:02 - CONCLUSION: No significant change in the bibasilar airspace disease and pleural effusions. José Miguel Rodriguez MD Objective Remarks Patient intubated dressing BLE intact swelling, but thighs soft cap refill distally Assessment & Plan Ortho Post Op Day #: 1 Problem List: Assessment and Plan s/p - Right Femoral shaft fracture--status post intramedullary nail fixation by Dr. Donovan 05/21/17 -Left Tibial plateau fracture--status post ORIF by Dr. Donovan 05/21/17 -Left foot first, second, and third metatarsal fractures--plan nonsurgical treatment -Left comminuted proximal humerus fracture--will likely need ORIF versus possible hemiarthroplasty by Dr. Ley, continue to follow patient's progress. Central line would need to be removed away from the left subclavian region prior to potential surgery NWB BLE daily dressing changes CKS to KEVEN [facility] critical care management Jasper George May 22, 2017 15:04
[2017-05-22] MEDS: PANTOPRAZOLE SODIUM 40 MG VIAL IV PUSH SCH (20:21)
--- NOTE | 2017-05-22 23:14 | EKG ---
Date Performed: 05/21/2017 Time Performed: 03:20:12 PTAGE: 89 years EKG: Sinus tachycardia. Anteroseptal T wave changes are nonspecific Borderline ECG NO PREVIOUS TRACING DOCTOR: Florentino Wilburn Interpretating Date/Time 05/22/2017 23:02:32
[2017-05-23] VITALS (16 sets, daily range): BP systolic 106–144; BP diastolic 60–70; PULSE 92–104; RESP 16–19; TEMP 99.1–100.4; O2SAT 96–100
[2017-05-23] MEDS: RESP: ALBUTEROL 2.5 MG/IPRATROPIUM 0.5 MG NEB (SCH) INH ×6 (00:08→19:43)
[2017-05-23] MEDS: CHLORHEXIDINE GLUCONATE 2 % 1 PACK (2 CLOTHS) TOP SCH ×2 (04:00→19:47)
[2017-05-23] MEDS: fentaNYL DRIP 250 ML IV PRN ×2 (04:05→15:22)
[2017-05-23 05:27] LABS: ALBUMIN 2.2 GM/DL (3.4-5.0); ALT (GPT) 21 U/L (12-78); AST (GOT) 37 U/L (15-37); BICARBONATE 26.5 MEQ/L (21.0-32.0); BLOOD UREA NITROGEN 22 MG/DL (7-18); CALCIUM 7.6 MG/DL (8.5-10.1); CHLORIDE 117 MEQ/L (98-107); CREATININE 1.07 MG/DL (0.60-1.30); GLOMERULAR FILTRATION RATE 71 ML/MIN (>89); GLUCOSE,RANDOM 109 MG/DL (74-106); SODIUM (NA) 152 MEQ/L (136-145)
[2017-05-23 05:29] LABS: ALKALINE PHOSPHATASE 61 U/L (45-117); TOTAL BILIRUBIN ADULT 1.5 MG/DL (0.2-1.0); TOTAL PROTEIN 5.3 GM/DL (6.4-8.2)
[2017-05-23] MEDS: INSULIN ASPART SUPPLEMENTAL SCALE SQ SCH ×3 (05:31→18:00)
[2017-05-23] MEDS: FREE WATER G-TUBE SCH ×3 (05:31→18:00)
[2017-05-23] MEDS: LACTATED RINGER'S 1000 ML INJ 1,000 ML IV SCH (05:34)
--- NOTE | 2017-05-23 05:34 | RADRPT ---
EXAM DATE/TIME: 05/23/2017 04:14 [place] COMPARISON: CT THORAX W CONTRAST, May 19, 2017, 16:34. CHEST SINGLE AP, May 22, 2017, 4:02. INDICATIONS : Short of breath. MEDICAL HISTORY : None. SURGICAL HISTORY : None. ENCOUNTER: Subsequent ACUITY: 3 days PAIN SCORE: Non-responsive. LOCATION: Bilateral chest FINDINGS: A single AP portable semierect view the chest was obtained and again demonstrates the endotracheal tu be in place with the tip 2-3 cm above the erica. The previously noted nasogastric tube has been teodoro zulma. Bibasal opacity remains right greater than left with blunting of both costophrenic angles. The h eart size remains moderately enlarged. The bony thorax is intact with multiple overlying electrocardi ogram leads. Multiple left rib fractures are again noted with no pneumothorax. CONCLUSION: 1. Multiple left rib fractures with no visualized pneumothorax. 2. Interval removal of nasogastric tube. 3. Bibasal opacity and small effusions right greater than left. José Miguel Rodriguez MD on May 23, 2017 at 5:30 Board Certified Radiologist. This report was verified electronically.
[2017-05-23 06:01] LABS: AUTOMATED NEUTROPHIL # 4.8 TH/MM3 (1.8-7.7); BASOPHIL % 0.6 % (0.0-2.0); EOSINOPHIL # 0.2 TH/MM3 (0-0.4); EOSINOPHIL % 2.7 % (0.0-4.0); HEMATOCRIT 28.3 % (39.0-51.0); HEMOGLOBIN 9.8 GM/DL (13.0-17.0); LYMPH % 10.6 % (9.0-44.0); LYMPHOCYTE # 0.6 TH/MM3 (1.0-4.8); MEAN CELL VOLUME 88.1 FL (80.0-100.0); MEAN CORPUSCULAR HEMOGLOBIN 30.6 PG (27.0-34.0); MEAN CORPUSCULAR HGB CONC 34.7 % (32.0-36.0); MEAN PLATELET VOLUME 8.2 FL (7.0-11.0); MONO % 3.7 % (0.0-8.0); MONOCYTE # 0.2 TH/MM3 (0-0.9); NEUT % 82.4 % (16.0-70.0); PLATELET COUNT 93 TH/MM3 (150-450); RED BLOOD COUNT 3.21 MIL/MM3 (4.50-5.90); RED CELL DISTRIBUTION WIDTH 15.6 % (11.6-17.2); WHITE BLOOD COUNT 5.9 TH/MM3 (4.0-11.0)
[2017-05-23] MEDS: PROPOFOL 1000 MG/100 ML INJ 100 ML IV PRN ×3 (06:16→18:48)
[2017-05-23] MEDS: CHLORHEXIDINE 0.12% (ORAL KIT) 15 ML CUP MT SCH ×2 (08:00→20:00)
[2017-05-23] MEDS: DOCUSATE SODIUM 50 MG/SENNA 8.6 MG TAB PO SCH ×2 (09:00→20:31)
[2017-05-23] MEDS: LACTULOSE SYRUP 20 GM/30 ML CUP PO SCH (09:00)
[2017-05-23] MEDS: SODIUM CHLORIDE 0.9% FLUSH 10 ML FLUSH IV FLUSH SCH ×2 (09:00→20:31)
[2017-05-23] MEDS: ARTIFICIAL TEARS OPTH SOLN 15 ML BTL EACH EYE SCH ×3 (09:00→18:00)
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
[2017-05-23 09:30] LABS: BANDS 20 % (0-6); BASOPHILS 1 % (0-2); LYMPHOCYTES 9 % (9-44); METAMYELOCYTES 1 % (0-1); NEUTROPHIL # MANUAL DIFF 5.3 TH/MM3 (1.8-7.7); POLYS (SEG NEUTROPHILS) 68 % (16-70)
--- NOTE | 2017-05-23 09:49 | PD.ORT.PN ---
Subjective Subjective Remarks Intubated and stable Objective Vitals Vital Signs Date Time Temp Pulse Resp B/P (MAP) Pulse Ox O2 Delivery O2 Flow Rate FiO2 05/23/17 08:30 100 40 05/23/17 08:00 92 05/23/17 08:00 99.1 92 16 112/60 (77) 99 05/23/17 08:00 40 05/23/17 07:00 98 Mechanical Ventilator 40 05/23/17 06:00 94 05/23/17 04:00 99.3 99 16 106/66 (79) 96 05/23/17 04:00 100 05/23/17 04:00 40 05/23/17 03:10 97 40 05/23/17 02:00 100 05/23/17 00:05 97 40 05/23/17 00:00 100 05/23/17 00:00 100.4 100 16 108/61 (77) 97 05/23/17 00:00 40 05/22/17 22:00 106 05/22/17 21:36 96 40 05/22/17 20:00 30 05/22/17 20:00 99.8 114 14 131/72 (91) 94 05/22/17 20:00 114 18 19:37 94 30 05/22/17 19:00 99 Mechanical Ventilator 40 05/22/17 18:00 117 05/22/17 16:51 98 35 05/22/18 16:00 35 05/22/18 16:00 112 05/22/18 16:00 100.4 112 14 150/85 (106) 98 18 14:00 112 18 12:19 98 35 18 12:15 35 18 12:00 100.0 107 22 165/92 (116) 99 05/22/18 12:00 40 05/22/18 12:00 102 05/22/18 11:39 98 40 05/22/18 10:00 102 I/O 05/22/18 2//18 2/19/18 2/20/18 2/20/18 2/20/18 07:00 15:00 23:00 07:00 15:00 23:00 Intake Total 100 ml 550 ml 2142 ml Output Total 500 ml 700 ml 750 ml Balance -400 ml -150 ml 1392 ml IV Total 100 ml 50 ml 2074 ml Tube Feeding 100 ml 68 ml Other 400 ml Output Urine Total 500 ml 700 ml 750 ml # Bowel Movements 0 Result Diagram: 05/23/17 0455 05/23/17 0440 Imaging Last 24 hours Impressions Chest X-Ray 05/22/17 0600 Signed Impressions: Service Date/Time: Monday, May 22, 2017 04:02 - CONCLUSION: No significant change in the bibasilar airspace disease and pleural effusions. José Miguel Rodriguez MD Objective Remarks Patient intubated dressing BLE intact swelling, but thighs soft cap refill distally Left upper extremity: Skin intact over proximal humerus. Moderate bruising and swelling. Distally intact distal pulses and good capillary refills. Patient is sedated and was unable to assess motor and sensory. Assessment & Plan Assessment and Plan s/p - Right Femoral shaft fracture--status post intramedullary nail fixation by Dr. Donovan 05/21/17 -Left Tibial plateau fracture--status post ORIF by Dr. Donovan 05/21/17 -Left foot first, second, and third metatarsal, left lateral cuneiform fractures --plan nonsurgical treatment -Left comminuted proximal humerus fracture NWB BLE daily dressing changes CKS to LLE hold lovenox Nothing by mouth Surgery today for left proximal humerus fracture ORIF versus hemiarthroplasty critical care management José Miguel Rice Jr. May 23, 2017 09:49
[2017-05-23] MEDS ORDERED: ACETAMINOPHEN 1000 MG/100 ML 100 ML IV ONE (11:09)
[2017-05-23 11:32] LABS: CALCIUM 7.6 MG/DL (8.5-10.1); CALCIUM-PROTEIN CORRECTED 8.6 MG/DL (8.5-10.1); TOTAL PROTEIN 5.3 GM/DL (6.4-8.2)
[2017-05-23] MEDS ORDERED: VANCOMYCIN HCL 1000 MG VIAL ONE (11:48)
[2017-05-23] MEDS ORDERED: GENTAMICIN SULFATE 80 MG/2 ML VIAL ONE (11:48)
[2017-05-23] MEDS ORDERED: LIDOCAINE HCL 1% PF 5 ML SYRINGE OTHER ONE (12:00)
[2017-05-23] MEDS ORDERED: PROPOFOL 200 MG/20 ML AMP IV ONE (12:00)
[2017-05-23] MEDS ORDERED: SODIUM CHLOR 0.9% 250 ML INJ 750 ML IV ONE (12:00)
[2017-05-23] MEDS ORDERED: PHENYLEPH/NS 1000 MCG/10 ML SYR IV ONE (12:00)
[2017-05-23] MEDS ORDERED: PHENYLEPHRINE HCL 10 MG/ML VIAL IV ONE (12:00)
[2017-05-23] MEDS ORDERED: ROCURONIUM INJ 50 MG/5 ML SYRINGE IV PUSH ONE (12:00)
--- NOTE | 2017-05-23 14:07 | PD.OP ---
cc: Mal Jansen MD Operative Report Date of Surgery: May 23, 2017 Preoperative Diagnosis: Comminuted displaced left proximal humerus fracture Postoperative Diagnosis: Procedure: Open reduction internal fixation left proximal humerus Anesthesia: Gen. Surgeon: Mal Jansen Lens And Frames Prescription Clerk(s): SUHAIL Pineda PA-C The surgical procedure was assisted by my physician materials assistant. My P.A. presence was necessary throughout this case for the manipulation and positioning of the surgical extremity. My P.A. was assisting me throughout the duration of this procedure. The skill set of a physician materials assistant was medically necessary to complete this procedure. During the surgical case the medical surgical tech was working at the back table and the physician materials assistant was directly assisting me. Operation and Findings: Patient was seen and evaluated preoperatively. Patient had multiple injuries including tibial plateau fracture, metatarsal fractures, and femur fracture. Patient also had a displaced left proximal humerus fracture. Patient has been intubated and sedated in the intensive care unit. He has been unable to consent secondary to intubation and sedation. The risks and benefits of surgical and nonsurgical options were discussed in detail and informed consent was obtained for surgery from patient's mother. Patient was brought to the operating room and placed on or table. IV sedation and GETA were administered by anesthesiologist. Antibiotics were given prior to incision. Left arm and shoulder were prepped with alcohol followed by Hibiclens and draped usual sterile fashion. Timeout procedure was performed. Procedure began with a 5 inch incision over the anterior shoulder. Cephalic vein was identified. A deltopectoral approach was utilized. The fracture was now visualized. Soft tissue was retracted. A #5 FiberWire suture was placed into the rotator rotator cuff and greater tuberosity. A second #5 FiberWire sutures placed into the lesser tuberosity. Attention was now turned to reduction. Gentle traction was applied. The humeral head was elevated. The tuberosities were now reduced. The humeral head was manipulated to achieve appropriate reduction. K wires were used to hold provisional fixation. The humeral shaft was now reduced to the humeral head. Fracture was manipulated to achieve appropriate reduction. Multiplanar fluoroscopy confirmed well aligned fracture. Multiple K wires were used to hold provisional fixation. A Synthes proximal humerus plate was selected. Plate was provisionally held in place K wires. 3.5 cortical screws were used to compress plate to bone. Fluoroscopy confirmed appropriate plate placement and fracture reduction. Multiple locking screws were now placed in the humeral head. Screws were predrilled and premeasured for appropriate length. Care was taken not to penetrate the articular surface. Additional screws were placed in the humeral shaft. The FiberWire suture was passed through the holes of the plate and sutured to the plate for additional stability. Final fluoroscopy revealed well aligned fracture with well-placed hardware. Wound was thoroughly irrigated. Fascia was closed with #1 Vicryl, subcutaneous tissues closed with 3-0 Vicryl, and skin was closed with yajaira. Sterile dressings were applied. Patient was placed into a sling. Patient was awakened and transferred to recovery in stable condition. Needle and sponge counts were correct. Mal Jansen MD May 23, 2017 14:07
[2017-05-23] MEDS ORDERED: ACETAMINOPHEN/HYDROcodone 325 MG/10 MG TAB PO PRN (15:30)
[2017-05-23] MEDS ORDERED: MORPHINE SULFATE 4 MG/ML INJ IV PUSH PRN (15:30)
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
[2017-05-23] MEDS: ceFAZolin 2 GM PREMIX 50 ML IV SCH (16:55)
--- NOTE | 2017-05-23 17:59 | RADRPT ---
EXAM DATE/TIME: 05/23/2017 13:45 [facility] COMPARISON: No previous studies available for comparison. INDICATIONS : ORIF of the left proximal humerus. MEDICAL HISTORY : None. SURGICAL HISTORY : None. ENCOUNTER: Subsequent ACUITY: 4 - 6 days PAIN SCORE: Non-responsive. LOCATION: Left proximal humerus. FINDINGS: 6 images are recorded digitally in the operating room using C-arm during placement of a proximal ofelia ral plate with multiple screws. CONCLUSION: Intraoperative images. Joaquin Velez MD on May 23, 2017 at 17:56 Board Certified Radiologist. This report was verified electronically.
[2017-05-23] MEDS: MAGNESIUM HYDROXIDE SUSP 30 ML CUP PO PRN (20:30)
[2017-05-23] MEDS: ENOXAPARIN SODIUM 30 MG/0.3 ML SYRINGE SQ SCH (20:30)
[2017-05-23] MEDS: PANTOPRAZOLE SODIUM 40 MG VIAL IV PUSH SCH (20:31)
[2017-05-24] VITALS (19 sets, daily range): BP systolic 110–143; BP diastolic 62–94; PULSE 96–112; RESP 16–28; TEMP 99.7–101.1; O2SAT 90–99
[2017-05-24] MEDS: ceFAZolin 2 GM PREMIX 50 ML IV SCH ×3 (00:26→17:11)
[2017-05-24] MEDS: LACTATED RINGER'S 1000 ML INJ 1,000 ML IV SCH ×2 (01:08→20:41)
[2017-05-24] MEDS: PROPOFOL 1000 MG/100 ML INJ 100 ML IV PRN ×2 (01:08→06:57)
[2017-05-24] MEDS: fentaNYL DRIP 250 ML IV PRN ×2 (04:42→13:57)
[2017-05-24 04:49] LABS: AUTOMATED NEUTROPHIL # 4.7 TH/MM3 (1.8-7.7); BASOPHIL # 0.1 TH/MM3 (0-0.2); EOSINOPHIL # 0.1 TH/MM3 (0-0.4); EOSINOPHIL % 2.5 % (0.0-4.0); HEMATOCRIT 27.5 % (39.0-51.0); HEMOGLOBIN 9.3 GM/DL (13.0-17.0); LYMPH % 10.4 % (9.0-44.0); LYMPHOCYTE # 0.6 TH/MM3 (1.0-4.8); MEAN CELL VOLUME 88.7 FL (80.0-100.0); MEAN CORPUSCULAR HEMOGLOBIN 29.8 PG (27.0-34.0); MEAN CORPUSCULAR HGB CONC 33.6 % (32.0-36.0); MEAN PLATELET VOLUME 7.7 FL (7.0-11.0); MONOCYTE # 0.2 TH/MM3 (0-0.9); NEUT % 82.1 % (16.0-70.0); PLATELET COUNT 117 TH/MM3 (150-450); RED BLOOD COUNT 3.11 MIL/MM3 (4.50-5.90); RED CELL DISTRIBUTION WIDTH 15.6 % (11.6-17.2); WHITE BLOOD COUNT 5.7 TH/MM3 (4.0-11.0)
[2017-05-24 05:15] LABS: ALBUMIN 2.1 GM/DL (3.4-5.0); AST (GOT) 35 U/L (15-37); BICARBONATE 26.2 MEQ/L (21.0-32.0); BLOOD UREA NITROGEN 22 MG/DL (7-18); CALCIUM 7.6 MG/DL (8.5-10.1); CHLORIDE 118 MEQ/L (98-107); CREATININE 0.96 MG/DL (0.60-1.30); GLOMERULAR FILTRATION RATE 80 ML/MIN (>89); GLUCOSE,RANDOM 116 MG/DL (74-106); SODIUM (NA) 153 MEQ/L (136-145)
[2017-05-24 05:17] LABS: ALT (GPT) 14 U/L (12-78)
[2017-05-24 05:19] LABS: ALKALINE PHOSPHATASE 65 U/L (45-117); TOTAL PROTEIN 5.3 GM/DL (6.4-8.2)
[2017-05-24] MEDS: INSULIN ASPART SUPPLEMENTAL SCALE SQ SCH ×4 (05:52→18:00)
[2017-05-24] MEDS: FREE WATER G-TUBE SCH ×4 (05:53→17:11)
--- NOTE | 2017-05-24 07:03 | RADRPT ---
EXAM DATE/TIME: 05/24/2017 04:57 [facility] COMPARISON: CHEST SINGLE AP, May 23, 2017, 4:14. INDICATIONS : Shortness of breath. MEDICAL HISTORY : None. SURGICAL HISTORY : None. ENCOUNTER: Subsequent ACUITY: 4 - 6 days PAIN SCORE: Non-responsive. LOCATION: Bilateral chest FINDINGS: A single AP semierect view of the chest was obtained and demonstrates interval placement of a nasogas tric tube with the tip in the proximal stomach. The distal side-port is at the level of the distal es ophagus. Endotracheal tube remains in place with the tip 2 cm above the erica. Bilateral air space d isease is again noted which appears increased in the perihilar regions and upper lobes. Both costophr enic angles remain blunted. The heart size remains enlarged. CONCLUSION: 1. Interval increase in airspace disease. 2. Interval placement of nasogastric tube with the tip in the proximal stomach. The side-port is at t he level of the distal esophagus. This could be advanced at least 5 cm. José Miguel Rodriguez MD on May 24, 2017 at 7:00 Board Certified Radiologist. This report was verified electronically.
--- NOTE | 2017-05-24 07:06 | PD.ORT.PN ---
Subjective Subjective Remarks POD 1 s/p ORIF left proximal humerus fx s/p IMN right femur by Dr Donovan s/p ORIF left tibial plateau by Dr Donovan s/p left cuboid and fibula and MT fxs - nonop intubated/sedated Objective Vitals Vital Signs Date Time Temp Pulse Resp B/P (MAP) Pulse Ox O2 Delivery O2 Flow Rate FiO2 05/24/17 03:19 96 40 05/24/17 02:00 100 05/24/17 00:23 94 40 05/24/17 00:00 102 05/24/17 00:00 40 05/24/17 00:00 100.0 102 17 110/62 (78) 95 05/23/17 22:00 102 05/23/17 20:00 100.0 104 19 144/70 (94) 97 05/23/17 20:00 40 05/23/17 20:00 104 05/23/17 19:39 98 40 05/23/17 19:00 100 Mechanical Ventilator 40 05/23/17 18:00 104 05/23/17 16:00 100.2 104 16 129/61 (83) 98 05/23/17 16:00 40 05/23/17 16:00 104 05/23/17 14:28 98 40 05/23/17 11:45 100 40 05/23/17 10:00 97 05/23/17 08:30 100 40 05/23/17 08:00 92 05/23/17 08:00 99.1 92 16 112/60 (77) 99 05/23/17 08:00 40 I/O 05/23/17 05/23/17 05/23/17 05/24/17 05/24/17 05/24/17 07:00 15:00 23:00 07:00 15:00 23:00 Intake Total 2142 ml 1100 ml 250 ml 785 ml Output Total 750 ml 425 ml 250 ml Balance 1392 ml 675 ml 0 ml 785 ml IV Total 2074 ml 200 ml 250 ml 785 ml Tube Feeding 68 ml Other 900 ml Output Urine Total 750 ml 250 ml Estimated Blood Loss 75 ml Other 350 ml # Bowel Movements 0 0 Result Diagram: 05/24/17 0430 05/24/17 043 Imaging Last 24 hours Impressions Chest X-Ray 05/22/17 06 Signed Impressions: Service Date/Time: Monday, May 22, 2017 04:02 - CONCLUSION: No significant change in the bibasilar airspace disease and pleural effusions. José Miguel Rodriguez MD Objective Remarks Patient intubated LLE: dressings clean and dry. intact. +knee brace. no splint on ankle. notable bruising of foot and ankle LUE: dressings clean and dry. intact. +sling RLE: dressings clean and dry. intact. Assessment & Plan Assessment and Plan s/p -Right Femoral shaft fracture--status post intramedullary nail fixation by Dr. Donovan 05/21/17 -Left Tibial plateau fracture--status post ORIF by Dr. Donovan 05/21/17 -Left foot first, second, and third metatarsal, left lateral cuneiform fractures --plan nonsurgical treatment -Left comminuted proximal humerus fracture--s/p ORIF by Dr Ley 05/23/17 NWB BLE NWB LUE and maintain splint at all times begin daily dressing changes to left shoulder on POD 2 daily dressing changes CKS to LLE resume lovenox 23hr post op will order splint for left ankle ortho surgeries complete at this time critical care mgmt Jose Carrasco/First Kody ENGLE May 24, 2017 07:06
--- NOTE | 2017-05-24 07:59 | PD.ORT.PN ---
Subjective Subjective Remarks intubated Objective Vitals Vital Signs Date Time Temp Pulse Resp B/P (MAP) Pulse Ox O2 Delivery O2 Flow Rate FiO2 05/24/17 06:00 100 05/24/17 04:00 40 05/24/17 04:00 96 05/24/17 04:00 99.7 96 16 132/66 (88) 99 05/24/17 03:19 96 40 05/24/17 02:00 100 05/24/17 00:23 94 40 05/24/17 00:00 102 05/24/17 00:00 40 05/24/17 00:00 100.0 102 17 110/62 (78) 95 05/23/17 22:00 102 05/23/17 20:00 100.0 104 19 144/70 (94) 97 05/23/17 20:00 40 05/23/17 20:00 104 05/23/17 19:39 98 40 05/23/17 19:00 100 Mechanical Ventilator 40 05/23/17 18:00 104 05/23/17 16:00 100.2 104 16 129/61 (83) 98 05/23/17 16:00 40 05/23/17 16:00 104 05/23/17 14:28 98 40 05/23/17 11:45 100 40 05/23/17 10:00 97 05/23/17 08:30 100 40 05/23/17 08:00 92 05/23/17 08:00 99.1 92 16 112/60 (77) 99 05/23/17 08:00 40 I/O 05/23/17 05/23/17 05/23/17 05/24/17 05/24/17 05/24/17 07:00 15:00 23:00 07:00 15:00 23:00 Intake Total 2142 ml 1100 ml 250 ml 1513 ml Output Total 750 ml 425 ml 250 ml 900 ml Balance 1392 ml 675 ml 0 ml 613 ml IV Total 2074 ml 200 ml 250 ml 785 ml Tube Feeding 68 ml 128 ml Other 900 ml 600 ml Output Urine Total 750 ml 250 ml 900 ml Estimated Blood Loss 75 ml Other 350 ml # Bowel Movements 0 0 0 Result Diagram: 05/24/1742905/24/17 043 Imaging Last 24 hours Impressions Chest X-Ray 2/19/18 0600 Signed Impressions: Service Date/Time: Monday, May 22, 2017 04:02 - CONCLUSION: No significant change in the bibasilar airspace disease and pleural effusions. José Miguel Rodriguez MD Objective Remarks Patient intubated LLE: dressings clean and dry. intact. +knee brace. no splint on ankle. notable bruising of foot and ankle LUE: dressings clean and dry. intact. +sling RLE: dressings clean and dry. intact. Assessment & Plan Assessment and Plan s/p -Right Femoral shaft fracture--status post intramedullary nail fixation by Dr. Donovan 05/21/17 -Left Tibial plateau fracture--status post ORIF by Dr. Donovan 05/21/17 -Left foot first, second, and third metatarsal, left lateral cuneiform fractures --plan nonsurgical treatment -Left comminuted proximal humerus fracture--s/p ORIF by Dr Ley 05/23/17 NWB BLE NWB LUE and maintain splint at all times begin daily dressing changes to left shoulder on POD 2 daily dressing changes BLE CKS to LLE resume lovenox 23hr post op will order splint for left ankle ortho surgeries complete at this time critical care mgmt Jasper George May 24, 2017 07:59
[2017-05-24] MEDS: CHLORHEXIDINE 0.12% (ORAL KIT) 15 ML CUP MT SCH ×2 (08:00→20:00)
[2017-05-24] MEDS: LACTULOSE SYRUP 20 GM/30 ML CUP PO SCH (08:36)
[2017-05-24] MEDS: CHOLECALCIFEROL (VIT D3) 1000 UNIT TAB PO SCH (08:36)
[2017-05-24] MEDS: ENOXAPARIN SODIUM 30 MG/0.3 ML SYRINGE SQ SCH ×2 (08:36→20:41)
[2017-05-24] MEDS: DOCUSATE SODIUM 50 MG/SENNA 8.6 MG TAB PO SCH ×2 (08:36→20:41)
[2017-05-24] MEDS: SODIUM CHLORIDE 0.9% FLUSH 10 ML FLUSH IV FLUSH SCH ×2 (08:36→20:41)
[2017-05-24] MEDS: ARTIFICIAL TEARS OPTH SOLN 15 ML BTL EACH EYE SCH ×3 (08:37→17:11)
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
[2017-05-24] MEDS ORDERED: RESP: RACEPINEPHRINE 2.25% 0.5 ML NEB ONE ×2 (14:20→14:21)
[2017-05-24] MEDS ORDERED: FUROSEMIDE 40 MG/4 ML VIAL IV PUSH ONE (14:30)
[2017-05-24] MEDS: CHLORHEXIDINE GLUCONATE 2 % 1 PACK (2 CLOTHS) TOP SCH (19:51)
[2017-05-24] MEDS: PANTOPRAZOLE SODIUM 40 MG VIAL IV PUSH SCH (20:40)
[2017-05-24] MEDS: MAGNESIUM HYDROXIDE SUSP 30 ML CUP PO PRN (20:41)
[2017-05-25] VITALS (11 sets, daily range): BP systolic 128–165; BP diastolic 70–90; PULSE 96–107; RESP 18–26; TEMP 98.5–99.5; O2SAT 92–95
[2017-05-25] MEDS: ceFAZolin 2 GM PREMIX 50 ML IV SCH ×2 (00:25→09:11)
[2017-05-25] MEDS: FREE WATER G-TUBE SCH ×3 (02:25→12:00)
[2017-05-25] MEDS: INSULIN ASPART SUPPLEMENTAL SCALE SQ SCH ×3 (06:00→12:00)
--- NOTE | 2017-05-25 06:52 | PD.ORT.PN ---
Subjective Subjective Remarks POD 2 s/p ORIF left proximal humerus fx s/p IMN right femur by Dr Donovan s/p ORIF left tibial plateau by Dr Donovan s/p left cuboid and fibula and MT fxs - nonop extubated. awake. no complaints. Objective Vitals Vital Signs Date Time Temp Pulse Resp B/P (MAP) Pulse Ox O2 Delivery O2 Flow Rate FiO2 05/25/17 06:00 99 05/25/17 04:00 99.3 96 18 139/70 (93) 94 05/25/17 02:00 98 05/25/17 00:00 99.5 102 18 128/79 (95) 92 05/25/17 00:00 102 05/24/17 22:00 106 05/24/17 20:32 92 Nasal Cannula 5.00 05/24/17 20:00 112 05/24/17 20:00 101.1 112 24 123/82 (96) 90 05/24/17 19:00 90 Nasal Cannula 5.00 05/24/17 18:00 98 05/24/17 16:00 101.1 110 22 143/94 (110) 92 Arterial Line 05/24/17 16:00 110 05/24/17 16:00 40 05/24/17 14:30 92 Nasal Cannula 6 05/24/17 14:00 106 05/24/17 12:00 40 05/24/17 12:00 100.6 110 28 141/91 (108) 92 05/24/17 12:00 110 05/24/17 11:39 94 40 05/24/17 10:30 40 05/24/17 10:00 105 05/24/17 09:30 99 40 05/24/17 08:21 95 40 05/24/17 08:00 100 05/24/17 08:00 99.8 96 16 123/63 (83) 96 05/24/17 08:00 40 05/24/17 07:00 96 Mechanical Ventilator 40 I/O 05/24/17 05/24/17 05/24/17 05/25/17 05/25/17 05/25/17 07:00 15:00 23:00 07:00 15:00 23:00 Intake Total 1513 ml 30 ml 2421 ml 600 ml Output Total 900 ml 2800 ml 1100 ml Balance 613 ml 30 ml -379 ml -500 ml Intake Oral 240 ml 600 ml IV Total 785 ml 30 ml 2181 ml Tube Feeding 128 ml Other 600 ml Output Urine Total 900 ml 2800 ml 1100 ml # Bowel Movements 0 0 1 Result Diagram: 05/24/17 0430 05/24/17 0430 Imaging Last 24 hours Impressions Chest X-Ray 05/22/17 0600 Signed Impressions: Service Date/Time: Monday, May 22, 2017 04:02 - CONCLUSION: No significant change in the bibasilar airspace disease and pleural effusions. José Miguel Rodriguez MD Objective Remarks Patient extubated LLE: dressings clean and dry. intact. +knee brace. splint intact. LUE: dressings clean and dry. intact. +sling RLE: dressings clean and dry. intact. Assessment & Plan Assessment and Plan s/p -Right Femoral shaft fracture--status post intramedullary nail fixation by Dr. Donovan 05/21/17 -Left Tibial plateau fracture--status post ORIF by Dr. Donovan 05/21/17 -Left foot first, second, and third metatarsal, left lateral cuneiform fractures --plan nonsurgical treatment -Left comminuted proximal humerus fracture--s/p ORIF by Dr Ley 05/23/17 NWB BLE NWB LUE and maintain splint at all times begin daily dressing changes to left shoulder on POD 2 daily dressing changes BLE CKS to LLE resume lovenox 23hr post op maintain splint to left ankle at all times ortho surgeries complete at this time critical care mgmt Jose Carrasco/Stitch Bonding Machine Tender PA May 25, 2017 06:52
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
[2017-05-25] MEDS: CHLORHEXIDINE 0.12% (ORAL KIT) 15 ML CUP MT SCH (08:00)
[2017-05-25] MEDS: BISACODYL 10 MG SUPP RECTAL SCH (09:00)
[2017-05-25] MEDS: DOCUSATE SODIUM 50 MG/SENNA 8.6 MG TAB PO SCH ×2 (09:00→21:06)
[2017-05-25] MEDS: LACTULOSE SYRUP 20 GM/30 ML CUP PO SCH (09:00)
[2017-05-25] MEDS: SODIUM CHLORIDE 0.9% FLUSH 10 ML FLUSH IV FLUSH SCH ×2 (09:11→21:06)
[2017-05-25] MEDS: ENOXAPARIN SODIUM 30 MG/0.3 ML SYRINGE SQ SCH ×2 (09:11→21:06)
[2017-05-25] MEDS: CHOLECALCIFEROL (VIT D3) 1000 UNIT TAB PO SCH (09:11)
[2017-05-25] MEDS: ARTIFICIAL TEARS OPTH SOLN 15 ML BTL EACH EYE SCH ×2 (09:12→13:00)
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
[2017-05-25 12:19] LABS: AUTOMATED NEUTROPHIL # 5.4 TH/MM3 (1.8-7.7); BASOPHIL % 0.4 % (0.0-2.0); EOSINOPHIL # 0.1 TH/MM3 (0-0.4); EOSINOPHIL % 2.2 % (0.0-4.0); HEMATOCRIT 30.1 % (39.0-51.0); HEMOGLOBIN 10.2 GM/DL (13.0-17.0); LYMPH % 10.5 % (9.0-44.0); LYMPHOCYTE # 0.7 TH/MM3 (1.0-4.8); MEAN CELL VOLUME 88.2 FL (80.0-100.0); MEAN CORPUSCULAR HEMOGLOBIN 29.8 PG (27.0-34.0); MEAN CORPUSCULAR HGB CONC 33.7 % (32.0-36.0); MEAN PLATELET VOLUME 8.4 FL (7.0-11.0); MONO % 4.8 % (0.0-8.0); MONOCYTE # 0.3 TH/MM3 (0-0.9); NEUT % 82.1 % (16.0-70.0); PLATELET COUNT 175 TH/MM3 (150-450); RED BLOOD COUNT 3.42 MIL/MM3 (4.50-5.90); RED CELL DISTRIBUTION WIDTH 15.6 % (11.6-17.2); WHITE BLOOD COUNT 6.6 TH/MM3 (4.0-11.0)
[2017-05-25 12:37] LABS: BICARBONATE 26.9 MEQ/L (21.0-32.0); CALCIUM 7.7 MG/DL (8.5-10.1); CREATININE 0.89 MG/DL (0.60-1.30)
[2017-05-25] MEDS: FAMOTIDINE 20 MG TAB PO SCH (21:06)
[2017-05-26] VITALS (7 sets, daily range): BP systolic 142–169; BP diastolic 84–96; PULSE 90–112; RESP 18–24; TEMP 98.3–99.3; O2SAT 94–98
[2017-05-26 05:35] LABS: AUTOMATED NEUTROPHIL # 6.1 TH/MM3 (1.8-7.7); BASOPHIL # 0.1 TH/MM3 (0-0.2); BASOPHIL % 0.7 % (0.0-2.0); EOSINOPHIL # 0.1 TH/MM3 (0-0.4); EOSINOPHIL % 1.2 % (0.0-4.0); HEMATOCRIT 29.8 % (39.0-51.0); HEMOGLOBIN 10.3 GM/DL (13.0-17.0); LYMPHOCYTE # 0.7 TH/MM3 (1.0-4.8); MEAN CELL VOLUME 88.9 FL (80.0-100.0); MEAN CORPUSCULAR HEMOGLOBIN 30.9 PG (27.0-34.0); MEAN CORPUSCULAR HGB CONC 34.7 % (32.0-36.0); MEAN PLATELET VOLUME 8.5 FL (7.0-11.0); MONO % 5.7 % (0.0-8.0); MONOCYTE # 0.4 TH/MM3 (0-0.9); NEUT % 83.4 % (16.0-70.0); PLATELET COUNT 216 TH/MM3 (150-450); RED BLOOD COUNT 3.35 MIL/MM3 (4.50-5.90); RED CELL DISTRIBUTION WIDTH 15.5 % (11.6-17.2); WHITE BLOOD COUNT 7.4 TH/MM3 (4.0-11.0)
[2017-05-26 05:59] LABS: BICARBONATE 24.3 MEQ/L (21.0-32.0); CALCIUM 7.7 MG/DL (8.5-10.1); CREATININE 0.78 MG/DL (0.60-1.30)
--- NOTE | 2017-05-26 07:18 | RADRPT ---
EXAM DATE/TIME: 05/26/2017 06:12 [facility] COMPARISON: CHEST SINGLE AP, May 24, 2017, 4:57. INDICATIONS : Short of breath, pulmonary contusion MEDICAL HISTORY : None. SURGICAL HISTORY : None. ENCOUNTER: Subsequent ACUITY: 1 week PAIN SCORE: Non-responsive. LOCATION: Bilateral chest FINDINGS: Motion graded portable AP view of the chest demonstrates a normal-sized cardiac silhouette. Lungs are underinflated with elevation of the right hemidiaphragm. There is mild opacity of both lung bases. H owever, overall there is improved aeration at the lung bases. No pneumothorax is identified. Bones de monstrate no acute finding. Endotracheal tube and nasogastric tube have been removed. CONCLUSION: Motion degraded examination. Lungs remain underinflated but there is improved aeration of the lung ba ses. Mild residual bibasilar atelectasis versus consolidation remains. Pedro Kerr MD on May 26, 2017 at 7:15 Board Certified Radiologist. This report was verified electronically.
[2017-05-26] MEDS: ENOXAPARIN SODIUM 30 MG/0.3 ML SYRINGE SQ SCH ×2 (08:36→20:57)
[2017-05-26] MEDS: CHOLECALCIFEROL (VIT D3) 1000 UNIT TAB PO SCH (08:37)
[2017-05-26] MEDS: BISACODYL 10 MG SUPP RECTAL SCH (08:37)
[2017-05-26] MEDS: SODIUM CHLORIDE 0.9% FLUSH 10 ML FLUSH IV FLUSH SCH ×2 (08:37→20:59)
[2017-05-26] MEDS: DOCUSATE SODIUM 50 MG/SENNA 8.6 MG TAB PO SCH ×2 (08:37→20:58)
[2017-05-26] MEDS: FAMOTIDINE 20 MG TAB PO SCH ×2 (08:37→20:57)
[2017-05-26] MEDS: LACTULOSE SYRUP 20 GM/30 ML CUP PO SCH (08:37)
--- NOTE | 2017-05-26 11:29 | PD.ORT.PN ---
Subjective Subjective Remarks POD 3 s/p ORIF left proximal humerus fx s/p IMN right femur by Dr Donovan s/p ORIF left tibial plateau by Dr Donovan s/p left cuboid and fibula and MT fxs - nonop extubated. awake. no complaints. Objective Vitals Vital Signs Date Time Temp Pulse Resp B/P (MAP) Pulse Ox O2 Delivery O2 Flow Rate FiO2 05/26/17 07:57 98.9 90 20 142/92 (109) 98 05/26/17 05:16 98.5 99 18 155/84 (107) 95 05/26/17 00:47 98.7 105 18 169/89 (115) 94 05/25/17 21:23 99.5 107 18 154/90 (111) 95 05/25/17 20:30 94 Nasal Cannula 5.00 05/25/17 19:27 95 Nasal Cannula 5.00 05/25/17 14:00 106 05/25/17 12:00 98.7 102 21 165/78 (107) 95 05/25/17 12:00 102 I/O 05/25/17 05/25/17 05/25/17 05/26/17 05/26/17 05/26/17 07:00 15:00 23:00 07:00 15:00 23:00 Intake Total 600 ml 50 ml 240 ml 240 ml Output Total 1100 ml 900 ml 1000 ml Balance -500 ml 50 ml -660 ml -760 ml Intake Oral 600 ml 240 ml 240 ml IV Total 50 ml Output Urine Total 1100 ml 900 ml 1000 ml # Bowel Movements 1 0 Result Diagram: 05/26/17 0457 05/26/17 0457 Imaging Last 24 hours Impressions Chest X-Ray 05/22/17 0600 Signed Impressions: Service Date/Time: Monday, May 22, 2017 04:02 - CONCLUSION: No significant change in the bibasilar airspace disease and pleural effusions. José Miguel Rodriguez MD Objective Remarks Patient extubated LLE: dressings clean and dry. intact. +knee brace. splint intact. LUE: dressings clean and dry. intact. +sling RLE: dressings clean and dry. intact. Assessment & Plan Assessment and Plan s/p -Right Femoral shaft fracture--status post intramedullary nail fixation by Dr. Donovan 05/21/17 -Left Tibial plateau fracture--status post ORIF by Dr. Donovan 05/21/17 -Left foot first, second, and third metatarsal, left lateral cuneiform fractures --plan nonsurgical treatment -Left comminuted proximal humerus fracture--s/p ORIF by Dr Jasmine 05/23/17 NWB BLE NWB LUE and maintain splint at all times begin daily dressing changes to left shoulder on POD 2 daily dressing changes BLE CKS to LLE resume lovenox 23hr post op maintain splint to left ankle at all times ortho surgeries complete at this time critical care mgmt CM for DC planning to rehab f/u with Dr Jasmine and Dr Donovan in 2 weeks Jose Carrasco/First Kody ENGLE May 26, 2017 11:29
[2017-05-26] MEDS ORDERED: HYDR-3288 PO (12:07)
[2017-05-26] MEDS ORDERED: ENOX30P SQ (12:07)
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
[2017-05-26] MEDS: METHOCARBAMOL 500 MG TAB PO SCH ×2 (15:06→22:07)
[2017-05-26] MEDS: LISINOPRIL 20 MG TAB PO SCH ×2 (15:06→20:57)
--- NOTE | 2017-05-26 20:41 | RADRPT ---
EXAM DATE/TIME: 05/26/2017 19:44 [facility] COMPARISON: CT LUMBAR SPINE W CONTRAST, May 19, 2017, 16:32. INDICATIONS : Pain. Trauma, LONGTERM. MEDICAL HISTORY : None. SURGICAL HISTORY : Orthopaedic surgeries. ENCOUNTER: Initial ACUITY: 1 day PAIN SCORE: 5/10 LOCATION: Paraspinal TECHNIQUE: Multiplanar multisequence MRI of the lumbar spine was performed without contrast. FINDINGS: The most caudal appearing lumbar vertebra is numbered as L5. VERTEBRAE: There is severe compression deformity of the L1 vertebral body without significant bone marrow edema. There is also mild anterior compression deformity of L4 vertebral body without significant bone bijal ow edema. Remaining vertebral body heights are intact. CONUS: Normal level and configuration. T12-L1: The thecal sac has a normal diameter. No evidence of disc bulge or protrusion. The neural foramina are patent bilaterally. L1-L2: Disc desiccation. Posterior bulging of the L1 vertebral body without significant retropulsed fragment s. No significant central canal stenosis. Mild left caudal neural foraminal narrowing. L2-L3: The thecal sac has a normal diameter. No evidence of disc bulge or protrusion. The neural foramina are patent bilaterally. L3-L4: Disc desiccation without significant bulge or herniation. No central canal or neural foraminal stenos is. L4-L5: Diffuse disc bulge and posterior osteophytes. Mild ligament flavum hypertrophy. Mild bilateral facet arthropathy. Mild central canal narrowing with central canal measuring 11 mm. Moderate bilateral neur al foraminal narrowing. L5-S1: Diffuse disc bulge with eccentric posterior osteophytes. Mild ligament flavum hypertrophy and bilater al facet arthropathy. Mild effacement into central canal. Mild caudal bilateral neural foraminal narr owing. CONCLUSION: 1. Chronic appearing severe L1 and mild L4 compression fractures. 2. No apparent acute fracture or subluxation. 3. Degenerative spondylosis of the lower lumbar spine most prominently at L4-S1, as above. Eleno Elise MD on May 26, 2017 at 20:33 Board Certified Radiologist. This report was verified electronically.
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
[2017-05-27] VITALS (7 sets, daily range): BP systolic 113–150; BP diastolic 78–90; PULSE 95–115; RESP 18–20; TEMP 98.3–100.8; O2SAT 93–96
[2017-05-27] MEDS: METHOCARBAMOL 500 MG TAB PO SCH ×3 (06:09→21:15)
[2017-05-27] MEDS: SODIUM CHLORIDE 0.9% FLUSH 10 ML FLUSH IV FLUSH SCH ×2 (09:00→21:00)
[2017-05-27] MEDS: DOCUSATE SODIUM 50 MG/SENNA 8.6 MG TAB PO SCH ×2 (09:00→21:00)
[2017-05-27] MEDS: CHOLECALCIFEROL (VIT D3) 1000 UNIT TAB PO SCH (09:23)
[2017-05-27] MEDS: ENOXAPARIN SODIUM 30 MG/0.3 ML SYRINGE SQ SCH ×2 (09:23→21:15)
[2017-05-27] MEDS: LISINOPRIL 20 MG TAB PO SCH ×2 (09:23→21:14)
[2017-05-27] MEDS: FAMOTIDINE 20 MG TAB PO SCH ×2 (09:23→21:15)
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
[2017-05-27] MEDS ORDERED: FUROSEMIDE 20 MG/2 ML VIAL IV PUSH ONE (12:45)
[2017-05-27] MEDS ORDERED: POTASSIUM CHLORIDE 25 MEQ EFFERVESCENT TAB PO ONE (12:45)
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
[2017-05-27] MEDS: METOPROLOL TARTRATE 25 MG TAB PO SCH ×2 (15:13→21:15)
[2017-05-28] VITALS (7 sets, daily range): BP systolic 117–153; BP diastolic 74–85; PULSE 95–104; RESP 18; TEMP 98.5–99.9; O2SAT 94–96
[2017-05-28 05:35] LABS: HEMATOCRIT 27.7 % (39.0-51.0); HEMOGLOBIN 9.8 GM/DL (13.0-17.0); MEAN CELL VOLUME 89.3 FL (80.0-100.0); MEAN CORPUSCULAR HEMOGLOBIN 31.7 PG (27.0-34.0); MEAN CORPUSCULAR HGB CONC 35.5 % (32.0-36.0); MEAN PLATELET VOLUME 8.5 FL (7.0-11.0); PLATELET COUNT 306 TH/MM3 (150-450); RED CELL DISTRIBUTION WIDTH 15.4 % (11.6-17.2); WHITE BLOOD COUNT 8.5 TH/MM3 (4.0-11.0)
[2017-05-28 05:49] LABS: BICARBONATE 26.1 MEQ/L (21.0-32.0); CALCIUM 7.8 MG/DL (8.5-10.1); CREATININE 0.88 MG/DL (0.60-1.30)
[2017-05-28] MEDS ORDERED: POTASSIUM CHLORIDE 20 MEQ CONTROLLED RELEASE TAB PO ONE (07:00)
[2017-05-28] MEDS: METHOCARBAMOL 500 MG TAB PO SCH ×3 (07:01→23:34)
[2017-05-28] MEDS: METOPROLOL TARTRATE 25 MG TAB PO SCH ×2 (08:52→23:34)
[2017-05-28] MEDS: LISINOPRIL 20 MG TAB PO SCH ×2 (08:53→23:35)
[2017-05-28] MEDS: CHOLECALCIFEROL (VIT D3) 1000 UNIT TAB PO SCH (08:53)
[2017-05-28] MEDS: ENOXAPARIN SODIUM 30 MG/0.3 ML SYRINGE SQ SCH ×2 (08:53→23:34)
[2017-05-28] MEDS: FAMOTIDINE 20 MG TAB PO SCH ×2 (08:56→23:34)
[2017-05-28] MEDS: SODIUM CHLORIDE 0.9% FLUSH 10 ML FLUSH IV FLUSH SCH ×2 (08:59→21:00)
[2017-05-28] MEDS ORDERED: ACETAMINOPHEN 325 MG TAB PO PRN (11:15)
[2017-05-28] MEDS ORDERED: fentaNYL 50 MCG/HR PATCH T-DERMAL SCH (11:15)
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
[2017-05-28] MEDS: DOCUSATE SODIUM 50 MG/SENNA 8.6 MG TAB PO SCH (21:00)
[2017-05-28] MEDS: RESP: ALBUTEROL 2.5 MG/IPRATROPIUM 0.5 MG NEB (SCH) NEB (21:01)
[2017-05-29] VITALS (9 sets, daily range): BP systolic 96–137; BP diastolic 58–84; PULSE 79–109; RESP 18–20; TEMP 98–99.4; O2SAT 91–95
--- NOTE | 2017-05-29 06:45 | RADRPT ---
EXAM DATE/TIME: 05/29/2017 05:58 [facility] COMPARISON: CHEST SINGLE AP, May 26, 2017, 6:12. INDICATIONS : Short of breath, follow up trauma MEDICAL HISTORY : arm and leg fractures, pulmonary contusion SURGICAL HISTORY : left shoulder ENCOUNTER: Subsequent ACUITY: 1 week PAIN SCORE: Non-responsive. LOCATION: Bilateral chest FINDINGS: Persistent right greater than left lower lung zone airspace disease. No significant pneumothorax or e ffusion. Cardiomediastinal contours are stable. The left-sided rib fractures with fixation of left hu meral fracture. Remainder of the exam is unchanged. CONCLUSION: 1. Persistent right greater than left lower lung zone airspace consolidation consistent with contusio ns versus aspiration. 2. No significant interval change. Eleno Elise MD on May 29, 2017 at 6:41 Board Certified Radiologist. This report was verified electronically.
[2017-05-29] MEDS: METHOCARBAMOL 500 MG TAB PO SCH ×3 (07:31→21:48)
[2017-05-29] MEDS: RESP: ALBUTEROL 2.5 MG/IPRATROPIUM 0.5 MG NEB (SCH) NEB ×4 (07:38→19:07)
[2017-05-29] MEDS: DOCUSATE SODIUM 50 MG/SENNA 8.6 MG TAB PO SCH ×2 (09:00→21:48)
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
[2017-05-29] MEDS: SODIUM CHLORIDE 0.9% FLUSH 10 ML FLUSH IV FLUSH SCH ×2 (10:55→21:49)
[2017-05-29] MEDS: FAMOTIDINE 20 MG TAB PO SCH ×2 (10:57→21:48)
[2017-05-29] MEDS: METOPROLOL TARTRATE 25 MG TAB PO SCH ×2 (10:57→21:00)
[2017-05-29] MEDS: CHOLECALCIFEROL (VIT D3) 1000 UNIT TAB PO SCH (10:58)
[2017-05-29] MEDS: LISINOPRIL 20 MG TAB PO SCH ×2 (10:58→21:48)
[2017-05-29] MEDS: ENOXAPARIN SODIUM 30 MG/0.3 ML SYRINGE SQ SCH ×2 (10:59→21:48)
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
[2017-05-30] VITALS: BP 109/59; PULSE 106; RESP 20; TEMP 99.5; O2SAT 94
[2017-05-30 04:00] VITALS: BP 111/68; PULSE 98; RESP 20; TEMP 97.4; O2SAT 95
[2017-05-30 04:14] LABS: AUTOMATED NEUTROPHIL # 6.8 TH/MM3 (1.8-7.7); BASOPHIL # 0.1 TH/MM3 (0-0.2); BASOPHIL % 0.6 % (0.0-2.0); EOSINOPHIL # 0.1 TH/MM3 (0-0.4); EOSINOPHIL % 1.4 % (0.0-4.0); HEMATOCRIT 28.5 % (39.0-51.0); HEMOGLOBIN 9.8 GM/DL (13.0-17.0); LYMPH % 10.7 % (9.0-44.0); LYMPHOCYTE # 0.9 TH/MM3 (1.0-4.8); MEAN CELL VOLUME 90.3 FL (80.0-100.0); MEAN CORPUSCULAR HGB CONC 34.3 % (32.0-36.0); MEAN PLATELET VOLUME 7.9 FL (7.0-11.0); MONO % 6.2 % (0.0-8.0); MONOCYTE # 0.5 TH/MM3 (0-0.9); NEUT % 81.1 % (16.0-70.0); PLATELET COUNT 399 TH/MM3 (150-450); RED BLOOD COUNT 3.16 MIL/MM3 (4.50-5.90); RED CELL DISTRIBUTION WIDTH 16.2 % (11.6-17.2); WHITE BLOOD COUNT 8.4 TH/MM3 (4.0-11.0)
[2017-05-30 04:42] LABS: BICARBONATE 24.8 MEQ/L (21.0-32.0); CALCIUM 7.5 MG/DL (8.5-10.1); CREATININE 0.81 MG/DL (0.60-1.30)
[2017-05-30] MEDS: METHOCARBAMOL 500 MG TAB PO SCH ×2 (05:08→13:23)
--- NOTE | 2017-05-30 07:18 | PD.ORT.PN ---
Subjective Subjective Remarks Awake alert No new complaints Objective Vitals Vital Signs Date Time Temp Pulse Resp B/P (MAP) Pulse Ox O2 Delivery O2 Flow Rate FiO2 05/30/17 04:00 97.4 98 20 111/68 (82) 95 05/30/17 00:00 99.5 106 20 109/59 (76) 94 05/29/17 22:29 98.5 105 20 106/58 (74) 93 05/29/17 16:00 99.4 109 20 121/74 (90) 94 05/29/17 15:31 91 Nasal Cannula 1.00 05/29/17 12:54 98.0 109 20 96/61 (73) 94 05/29/17 11:45 94 Nasal Cannula 1.00 05/29/17 08:24 98.4 102 20 136/79 (98) 94 05/29/17 07:54 95 Nasal Cannula 2.50 I/O 05/29/17 05/29/17 05/29/17 05/30/17 05/30/17 05/30/17 07:00 15:00 23:00 07:00 15:00 23:00 Intake Total 480 ml Output Total 1400 ml 1000 ml Balance -1400 ml -520 ml Intake Oral 480 ml Output Urine Total 1400 ml 1000 ml # Bowel Movements 3 Result Diagram: 05/30/17 0356 05/30/17 0356 Imaging Last 24 hours Impressions Chest X-Ray 05/22/17 0600 Signed Impressions: Service Date/Time: Monday, May 22, 2017 04:02 - CONCLUSION: No significant change in the bibasilar airspace disease and pleural effusions. José Miguel Rodriguez MD Objective Remarks Patient extubated LLE: dressings clean and dry. intact. +knee brace. splint is loose LUE: dressings clean and dry. intact. +sling RLE: dressings clean and dry. intact. Assessment & Plan Assessment and Plan s/p -Right Femoral shaft fracture--status post intramedullary nail fixation by Dr. Donovan 05/21/17 -Left Tibial plateau fracture--status post ORIF by Dr. Donovan 05/21/17 -Left foot first, second, and third metatarsal, left lateral cuneiform fractures --plan nonsurgical treatment -Left comminuted proximal humerus fracture--s/p ORIF by Dr Jasmine 05/23/17 NWB BLE NWB [facility] application to left ankle - Justyna splint maintain splint to left ankle at all times daily dressing changes to left shoulder Passive range of motion and pendulum swings of left shoulder - occupational therapy daily dressing changes BLE CKS to LLE lovenox ortho surgeries complete at this time CM for DC planning to rehab f/u with Dr Jasmine and Dr Donovan in 2 weeks José Miguel Rice Jr. May 30, 2017 07:18
[2017-05-30 07:51] VITALS: O2SAT 94
[2017-05-30] MEDS ORDERED: POTASSIUM CHLORIDE 20 MEQ CONTROLLED RELEASE TAB PO ONE (08:00)
[2017-05-30 08:17] VITALS: BP 121/77; PULSE 100; RESP 20; TEMP 98; O2SAT 94
[2017-05-30] MEDS: RESP: ALBUTEROL 2.5 MG/IPRATROPIUM 0.5 MG NEB (SCH) NEB ×2 (08:50→11:00)
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
[2017-05-30] MEDS: CHOLECALCIFEROL (VIT D3) 1000 UNIT TAB PO SCH (08:59)
[2017-05-30] MEDS: METOPROLOL TARTRATE 25 MG TAB PO SCH (08:59)
[2017-05-30] MEDS: LISINOPRIL 20 MG TAB PO SCH (08:59)
[2017-05-30] MEDS: ENOXAPARIN SODIUM 30 MG/0.3 ML SYRINGE SQ SCH (08:59)
[2017-05-30] MEDS: FAMOTIDINE 20 MG TAB PO SCH (09:00)
[2017-05-30] MEDS: DOCUSATE SODIUM 50 MG/SENNA 8.6 MG TAB PO SCH (09:00)
[2017-05-30] MEDS: SODIUM CHLORIDE 0.9% FLUSH 10 ML FLUSH IV FLUSH SCH (09:01)
[2017-05-30] MEDS ORDERED: Lactulose Liq PO (11:50)
[2017-05-30] MEDS ORDERED: METH500T3 PO (11:50)
[2017-05-30] MEDS ORDERED: FAMO20TA2 PO (11:50)
[2017-05-30] MEDS ORDERED: PERI PO (11:50)
[2017-05-30] MEDS ORDERED: LISI-515 PO (11:50)
[2017-05-30] MEDS ORDERED: METO25TA3 PO (11:50)
[2017-05-30] MEDS ORDERED: MAGN30S PO (11:50)
[2017-05-30 12:10] VITALS: BP 98/55; PULSE 106; RESP 20; TEMP 98.2; O2SAT 94
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
[2017-05-30] MEDS ORDERED: POTASSIUM CHLORIDE 10 MEQ CAP PO ONE (16:00)
== END 2017-05-30 15:03 | DRG 956 ==
LOC: NEPI 15:37 → EDBD 16:54 → NEDA 16:54 → N03A 17:08 → N05B 05-25 16:13
PROVIDERS: ADMIT Surgery Trauma Surgery; ATTEND Surgery Trauma Surgery
PROC: 0WJJ0ZZ Inspection of Pelvic Cavity, Open Approach (ICD-10-PCS; 2017-05-19)
PROC: 0BH17EZ Insertion of Endotracheal Airway into Trachea, Via Natural or Artificial Opening (ICD-10-PCS; 2017-05-19)
PROC: 30233K1 Transfusion of Nonautologous Frozen Plasma into Peripheral Vein, Percutaneous Approach (ICD-10-PCS; 2017-05-19)
PROC: 30233N1 Transfusion of Nonautologous Red Blood Cells into Peripheral Vein, Percutaneous Approach (ICD-10-PCS; 2017-05-19)
PROC: 0T9B70Z Drainage of Bladder with Drainage Device, Via Natural or Artificial Opening (ICD-10-PCS; 2017-05-19)
PROC: 6A550Z2 Pheresis of Platelets, Single (ICD-10-PCS; 2017-05-19)
PROC: 0D9670Z Drainage of Stomach with Drainage Device, Via Natural or Artificial Opening (ICD-10-PCS; 2017-05-19)
PROC: 04L23DZ Occlusion of Gastric Artery with Intraluminal Device, Percutaneous Approach (ICD-10-PCS; 2017-05-19)
PROC: 5A1955Z Respiratory Ventilation, Greater than 96 Consecutive Hours (ICD-10-PCS; principal; 2017-05-19 17:41)
PROC: 0QSH04Z Reposition Left Tibia with Internal Fixation Device, Open Approach (ICD-10-PCS; 2017-05-21)
PROC: 0LQQ0ZZ Repair Right Knee Tendon, Open Approach (ICD-10-PCS; 2017-05-21)
PROC: 3E1M38Z Irrigation of Peritoneal Cavity using Irrigating Substance, Percutaneous Approach (ICD-10-PCS; 2017-05-21)
PROC: 0QS806Z Reposition Right Femoral Shaft with Intramedullary Internal Fixation Device, Open Approach (ICD-10-PCS; 2017-05-21 10:42)
PROC: 0PSD04Z Reposition Left Humeral Head with Internal Fixation Device, Open Approach (ICD-10-PCS; 2017-05-23)
DX: S72.351A Displaced comminuted fracture of shaft of right femur, initial encounter for closed fracture (principal); S32.592A Other specified fracture of left pubis, initial encounter for closed fracture; T79.4XXA Traumatic shock, initial encounter; J96.00 Acute respiratory failure, unspecified whether with hypoxia or hypercapnia; N17.9 Acute kidney failure, unspecified; S22.009A Unspecified fracture of unspecified thoracic vertebra, initial encounter for closed fracture; D68.59 Other primary thrombophilia; S22.42XA Multiple fractures of ribs, left side, initial encounter for closed fracture; Z99.11 Dependence on respirator [ventilator] status; S27.322A Contusion of lung, bilateral, initial encounter; E87.2 Acidosis; E87.0 Hyperosmolality and hypernatremia; S82.142A Displaced bicondylar fracture of left tibia, initial encounter for closed fracture; S42.292A Other displaced fracture of upper end of left humerus, initial encounter for closed fracture; D62 Acute posthemorrhagic anemia; S82.141A Displaced bicondylar fracture of right tibia, initial encounter for closed fracture; J98.11 Atelectasis; E11.65 Type 2 diabetes mellitus with hyperglycemia; S92.212A Displaced fracture of cuboid bone of left foot, initial encounter for closed fracture; G89.29 Other chronic pain; M54.5 Low back pain; R00.0 Tachycardia, unspecified; E87.6 Hypokalemia; V23.4XXA Motorcycle driver injured in collision with car, pick-up truck or van in traffic accident, initial encounter; Y92.488 Other paved roadways as the place of occurrence of the external cause; Y93.89 Activity, other specified; I10 Essential (primary) hypertension; Z87.81 Personal history of (healed) traumatic fracture; S92.322A Displaced fracture of second metatarsal bone, left foot, initial encounter for closed fracture; S92.332A Displaced fracture of third metatarsal bone, left foot, initial encounter for closed fracture; S92.312A Displaced fracture of first metatarsal bone, left foot, initial encounter for closed fracture; S93.05XA Dislocation of left ankle joint, initial encounter
CPT/HCPCS: 31500; 36247; 36248; 36430; 36620; 37244; 43753; 70450; 71045; 71260; 72125; 72129; 72132; 72146; 72148; 72170; 73020; 73060; 73551; 73552; 73590; 73620; 73630; 73700; 74177; 75736; 75774; 76000; 76937; 80048; 80053; 80076; 82140; 82150; 82247; 82248; 82550; 82552; 82805; 82948; 83605; 83735; 84100; 84155; 85007; 85025; 85027; 85384; 85610; 85730; 86850; 86900; 86901; 86920; 86927; 86965; 87641; 90471; 90715; 93005; 94002; 94003; 94150; 94640; 94664; 94667; 94668; 96374; 96375; 99291; C1713; C1760; C1769; C1887; C1894; C9113; G0390; J0131; J0330; J0610; J0690; J1580; J1644; J1650; J1940; J2250; J2370; J2405; J3010; J3370; J3480; J7050; J7120; L0150; L0484; L1830; P9016; P9017; P9035; Q9967